=== PATIENT | male | born 1985 | race Caucasian/White ===

== ENCOUNTER 2017-10-02 22:00 | Emergency (ER) | END 2017-10-03 00:28 | disposition home or self-care (01) ==

== ENCOUNTER 2019-04-03 19:21 | Inpatient (IN) | payer OTHER ==
[~2019-04-03] VITALS: Ht 182.9 cm; Wt 80.9 kg
[~2019-04-03 19:21] MED LIST: DEXT37.54 BUCCAL; INSU100V18; Insulin Glargine SC; LIPA1CAP4 PO; NOV70303I; NOVO3I SC
[2019-04-03] MEDS ORDERED: SODIUM CHLORIDE 0.9% 1L BAG IV* STA (19:31)
[2019-04-03] MEDS ORDERED: CEFEPIME 2GM/50 ML (PMX) 50 ML IVPB STA (19:31)
[2019-04-03] MEDS ORDERED: LORAZEPAM 2 MG INJ IV ONE (20:00)
[2019-04-03] MEDS ORDERED: VANCOMYCIN 1 GM (PMX) 250 ML IVPB ONE (20:00)
[2019-04-03] MEDS ORDERED: INSULIN REGULAR 10 ML INJ IV STA (20:35)
[2019-04-03] MEDS ORDERED: INSULIN REGULAR, HUMAN 100 UNIT/1 ML 3ML VIAL IV STA (20:54)
[2019-04-03] MEDS ORDERED: INSULIN REGULAR, HUMAN 100 UNIT in SOD CHLORIDE 0.9% 100 ML IV SCH ×2 (21:00)
--- NOTE | 2019-04-03 22:20 | ERD ---
ER Documentation Chief Complaint Chief Complaint BIBRA from B&C,c/o leg cramps & pain,high blood sugar over 300 per EMS HPI This is a 33-year-old male brought in from a [facility] care facility. The patient has a history of insulin-dependent diabetes mellitus. According to the [facility] they stated that he has history of underlying psychiatric disorder with paranoia. The patient however denies a history of schizophrenia. The patient started complaining of severe bilateral leg cramps an hour prior to arrival. He became diaphoretic and said he was experiencing shaking and chills. The [facility] took his Accu-Chek and it was elevated greater than 300. They administered insulin. The patient said he was still complaining of severe cramping of his lower extremities with no shortness of breath and therefore they brought him to the emergency department to be further evaluated. They state he has had a productive cough for several days. No antipyretics were given prior to arrival. He denies any polyuria polydipsia. He stated he drank a gallon of water when he started to develop the leg cramps but this did not improve his symptoms. He denies any illicit drug use. He denies alcohol use. He denies a headache or neck pain. He denies any recent hospitalizations. ROS All systems reviewed and are negative except as per history of present illness. Medications Home Meds Reported Medications Insulin Lispro (Humalog) 100 U/Ml Vial 11/15/09 Insulin Human Isophan/Regular (Novolin 70/30) 100 Unit/Ml Susp 11/11/09 Allergies Allergies: Coded Allergies: No Known Allergies (Verified Allergy, Mild, 10/02/17) PMhx/Soc History of Surgery: No Hx Neurological Disorder: No Hx Respiratory Disorders: Yes (ASTHMA) Hx Cardiac Disorders: No Hx Psychiatric Problems: No Hx Miscellaneous Medical Probl: Yes (PARANOID SCHIZO) Hx Alcohol Use: No Hx Substance Use: No Hx Tobacco Use: No Smoking Status: Never smoker Physical Exam Vitals Vital Signs Date Temp Pulse Resp B/P (MAP) Pulse Ox O2 O2 Flow FiO2 Time Delivery Rate 04/03/19 71 14 110/64 98 Room Air 22:00 (79) 04/03/19 73 13 113/60 98 Room Air 21:45 (77) 04/03/19 73 13 112/63 98 Room Air 21:30 (79) 04/03/19 72 14 110/65 98 Room Air 21:15 (80) 04/03/19 83 16 114/78 98 Room Air 21:00 (90) 04/03/19 78 14 121/89 98 Room Air 20:45 (100) 04/03/19 80 15 120/65 97 Room Air 20:30 (83) 04/03/19 99.2 95 12 124/86 97 Room Air 20:00 (99) 04/03/19 99.0 123 20 121/89 100 19:32 (100) Physical Exam Constitutional:Well-developed. Well-nourished. HEENT:Normocephalic. Atraumatic.Pupils were equal round reactive to light. Very dry mucous membranes.No tonsillar exudates. Neck: No nuchal rigidity. No lymphadenopathy. No posterior cervical spine tenderness or step-offs. Respiratory: Not using accessory muscles of respiration.Lungs were clear to auscultation bilaterally. No rhonchi. No rales. No wheezing. Cardiovascular: Tachycardic with regular rhythm.No murmurs. No rubs were appreciated.S1, S2 normal. Distal pulses are palpable 2+ bilaterally. GI: Abdomen was soft. Nontender. Non Distended. No pulsatile abdominal masses or bruits. No rebound. No guarding. Bowel sounds were present and normal. Muscle skeletal: Full range of motion of both the upper and lower extremities bilaterally.Normal muscle tone.No assymetrical calf swelling but bilateral calf tenderness. Negative Homans sign. Skin: No petechia, no purpura. No lesions on the palms or the soles of the feet. No maculopapular rash. NEURO: Patient was alert, awake, orientated x3.No facial droop. Gait not observed as patient states he was in too much pain to ambulate. Result Diagram: 04/03/19193604/03/191936 Results 24 hrs Laboratory Tests Test 04/03/19 19:31 04/03/19 19:37 04/03/19 19:38 04/03/19 19:51 Bedside Glucose > 595 mg/dL White Blood 6.7 10^3/ul Count Red Blood Count 4.33 10^6/ul Hemoglobin 13.1 g/dl Hematocrit 36.2 % Mean 83.6 fl Corpuscular Volume Mean 30.3 pg Corpuscular Hemoglobin Mean 36.2 g/dl Corpuscular Hemoglobin Conc ent Red Cell 11.9 % Distribution Width Platelet Count 175 10^3/UL Mean Platelet 12.4 fl Volume Immature 0.300 % Granulocytes % Neutrophils % 58.9 % Lymphocytes % 27.0 % Monocytes % 12.3 % Eosinophils % 0.9 % Basophils % 0.6 % Nucleated Red 0.0 /100WBC Blood Cells % Immature 0.020 10^3/ul Granulocytes # Neutrophils # 4.0 10^3/ul Lymphocytes # 1.8 10^3/ul Monocytes # 0.8 10^3/ul Eosinophils # 0.1 10^3/ul Basophils # 0.0 10^3/ul Nucleated Red 0.0 10^3/ul Blood Cells # Prothrombin 13.6 Sec Time Prothrombin 1.1 Time Ratio INR 1.03 International Normalized Rati o Activated 27.5 Sec Partial Thrombo plast Time Sodium Level 130 mmol/L Potassium Level 4.2 mmol/L Chloride Level 85 mmol/L Carbon Dioxide 21 mmol/L Level Anion Gap 24 Blood Urea 22 mg/dl Nitrogen Creatinine 1.50 mg/dl Est Glomerular 54 mL/min Filtrat Rate mL/min Glucose Level 699 mg/dl Hemoglobin A1c 11.4 % Calcium Level 10.8 mg/dl Phosphorus 2.8 mg/dl Level Magnesium Level 1.9 mg/dl Total Bilirubin 3.7 mg/dl Direct 0.00 mg/dl Bilirubin Indirect 3.7 mg/dl Bilirubin Aspartate Amino 116 IU/L Transf (AST/SGO T) Alanine 72 IU/L Aminotransferas e (ALT/SGPT) Alkaline 174 IU/L Phosphatase Troponin I < 0.012 ng/ml Total Protein 8.8 g/dl Albumin 5.1 g/dl Globulin 3.70 g/dl Albumin/Globuli 1.37 n Ratio POC Venous 7.1 mmol/L Lactate Blood Gas Blood venous Specimen Source Arterial Blood 04/03/2019 8:25: Date Drawn 58 PM Arterial Blood VENOUS LINE Gas Puncture Site Robert Test N/A Venous Blood pH 7.419 Venous Blood 34.9 mmHG pCO2 (Temp Corrected ) Venous Blood 43.9 mmHG pO2 (Temp Corrected ) Venous Blood 22.1 mmol/L HCO3 Venous Blood 79.7 mmHG Oxygen Saturation Venous Blood -1.8 mmol/L Base Excess Venous Blood 13.0 g/dl Total Hemoglobin Venous Blood 78.8 % Oxyhemoglobin Venous Blood 0.3 % Methemoglobin Carboxyhemoglob 0.8 % in Blood Gas 37.0 C Temperature Blood Gas ROOM AIR Modality FiO2 21.0 % Blood Gas MG Notified Whom Blood Gas 04/03/2019 8:38: Notified Time 27 PM Test 04/03/19 20:59 04/03/19 21:05 04/03/19 21:36 04/03/19 21:46 Urine Color YELLOW Urine Clarity CLEAR Urine pH 5.0 Urine Specific 1.024 [place] Urine Ketones TRACE mg/dL Urine Nitrite NEGATIVE mg/dL Urine Bilirubin NEGATIVE mg/dL Urine NEGATIVE mg/dL Urobilinogen Urine Leukocyte NEGATIVE Jaylene/ul Esterase Urine NEGATIVE mg/dL Hemoglobin Urine Glucose 3+ mg/dL Urine Total NEGATIVE mg/dl Protein Bedside Glucose 448 mg/dL 394 mg/dL Lactic Acid 2.9 mmol/L Level Test 04/03/19 22:58 04/03/19 22:59 Bedside Glucose 151 mg/dL Lactic Acid 4.4 mmol/L Level Creatine Kinase 227 IU/L Current Medications Medications Dose Sig/Claire Start Time Status Last (Trade) Ordered Route PRN Stop Time Admin Dose Reason Admin Sodium 2,450 ml BOLUS OVER 2 04/03/19 DC 04/03/19 Chloride HOURS STAT 19:31 19:42 (NS) IV* 04/03/19 19:33 Cefepime HCl 50 ml @ ONCE STAT 04/03/19 DC 04/03/19 100 mls/hr IVPB 19:31 19:43 04/03/19 20:00 Vancomycin 250 ml @ ONCE ONCE 04/03/19 DC 04/03/19 HCl 125 mls/hr IVPB 20:00 20:25 04/03/19 21:59 Lorazepam 1 mg ONCE ONCE 04/03/19 DC 04/03/19 (Ativan) IV 20:00 19:43 04/03/19 20:01 Insulin 101 ml @ ER DKA 04/03/19 04/03/19 Human 8.26 mls/hr PROTOCOL IV 21:00 21:10 Regular 100 unit/ Sodium Chloride Insulin 10 unit ONCE STAT 04/03/19 Cancel Human IV 20:35 Regular 04/03/19 20:36 (Novolin-R) Insulin 10 unit ONCE STAT 04/03/19 DC 04/03/19 Human IV 20:54 21:09 Regular 04/03/19 20:55 (Humulin R) Sodium 1,000 ml @ Q5H IV 04/03/19 04/03/19 Chloride 200 mls/hr 22:32 22:51 Ondansetron 4 mg Q6H PRN 04/03/19 HCl (Zofran IV NAUSEA 23:00 Inj) AND/OR VOMITING Albuterol 2.5 mg Q2H RESP 04/03/19 (Proventil THERAPY PRN 23:00 0.083% (Neb)) NEB SHORTNESS OF BREATH Ipratropium 0.5 mg Q2H RESP 04/03/19 [place] THERAPY PRN 23:00 (Atrovent NEB 0.02% SHORTNESS OF (Neb)) BREATH 650 mg Q6H PRN 04/03/19 Acetaminophen PO PAIN 23:00 (Tylenol LEVEL 1-3 OR Liquid) FEVER 1 tab Q6H PRN 04/03/19 Acetaminophen PO PAIN 23:00 / LEVEL 4-6 Hydrocodone Bitart ([place] (5/325)) Morphine 2 mg Q4H PRN 04/03/19 Sulfate IV PAIN 23:00 (morphine) LEVEL 7-10 Docusate 100 mg Q12H PRN 04/03/19 Sodium PO 23:00 (Colace) CONSTIPATION Bisacodyl 5 mg DAILY PRN 04/03/19 (Dulcolax) PO 23:00 CONSTIPATION Famotidine 20 mg Q12 IV 04/03/19 04/03/19 (Pepcid Iv) 23:00 22:55 Heparin 5,000 unit Q8 SC 04/04/19 Sodium 06:00 (Porcine) (Heparin (5000 Units/1ml)) Discontinue PROTOCOL 04/03/19 DC Miscellaneous all previ... ONCE XX 23:00 04/03/19 23:01 Information (* Miscellaneous Pharmacy Order) Diagnostic 1 ea Q1H XX 04/03/19 Test (Pha) 23:00 (Accu-Chek) Insulin 100 ml @ 0 PER 04/03/19 Human mls/hr PROTOCOL IV 23:00 Regular 100 unit/ Sodium Chloride Treatment Per 04/03/19 Miscellaneous of protocol XX 23:00 Hypoglycemia: Information 1.BG 51... (* Miscellaneous Pharmacy Order) Dextrose 25 ml Q15M PRN 04/03/19 (D50w IV 23:00 Syringe) .DECREASED GLUCOSE Dextrose 50 ml Q15M PRN 04/03/19 (D50w IV 23:00 Syringe) .DECREASED GLUCOSE Lorazepam 1 mg Q6H PRN 04/03/19 (Ativan) IV 23:00 AGITATION/ANX IETY Procedures/MDM This is a 31-year-old male who presented to the emergency department with bilateral leg cramps. The patient did meet Sirs criteria. Patient was immediately placed in a cardiac surgeon continuous pulse oximetry and IV access was established by nursing staff. The patient's lactic acid was 7.1 and was treated for sepsis. 12 Lead EKG tracing ordered and reviewed by myself showed: Sinus tachycardia 122 bpm and no arrhythmia. MS interval normal. QRS duration normal. No ST segment elevation No ST segment depression. No changes consistent with acute ischemia. Patient's infectious symptoms have not stabilized and the patient is at risk of rapid decompensation. The patient will be admitted for careful hydration, antibiotic therapy, and infectious source control. Severe Sepsis Assessment: Infectious Source: Unknown source End organ damage indicated by: Lactate > 2.0 mmol/L Severe Sepsis Managment: Blood Cultures X 2 before broad spectrum antibiotics initiated within 3 hours of recognition. 30 ml/kg NS bolus Completed Initial Lactate: 7.1 Repeat Lactate pending Septic Shock Assessment (1 hour post 30 ml/kg fluid bolus): Hypotension (SBP < 90 or 40 mmHg drop, MAP < 65): No Lactic acid > 4.0 Yes Perfusion Reassessment for Septic Shock taken at 20:00: Temp 99.2, Pulse 95, RR 12, BP 124/86 Heart Exam: Regular rhythm and rate Lung Exam: Normal Capillary Refill: <2 seconds Peripheral Pulses: Radially present Skin: Normal I considered further perfusion assessment with CVP measurement, SCVO2, bedside ultrasound volume assessment, passive leg raise, trial of further fluid bolus. And preceded with IV fluids Chest radiograph showed no evidence of pneumonia. Blood cultures and urine cultures were obtained. There is no evidence of urinary tract infection. The exact source of sepsis was unclear. I did feel the elevated lactic acid more likely as result of sepsis but cannot rule out the possibility of the patient was experiencing elevated lactic acid being from severe hyperglycemia and agitation. Verbal de-escalation was unable to calm the patient down. He stated he was in a severe amount of pain. The pain was localized to his bilateral lower extremities. He did receive IV Ativan and had significant improvement of his symptoms. I obtained a venous duplex ultrasound of his lower extremities there is no evidence of DVT. There was no overlying skin changes to suggest cellulitis. His clinical presentation did not suggest necrotizing fasciitis. The patient had severe hyperglycemia with a blood glucose of 699. The patient did have an anion gap but there was no evidence of ketosis. Venous blood gas showed no evidence of acidosis. Bicarb was normal. Therefore did not feel this result of diabetic ketoacidosis. The patient was not in a coma. However he will be placed on an insulin drip to close the anion gap. He will be admitted to the intensive care unit in serious condition with an anticipated stay of greater than 2 midnights to the hospitalist. Critical Care: Time: 85 minutes Treatments/Evaluations: Close monitoring and treatment of unstable vital signs, cardiorespiratory, and neurologic status, while maintaining tight balance of fluid, respiratory, and cardiac interventions. Time does not include performing any of the above billable procedures. Departure Diagnosis: Primary Impression: Bilateral leg pain Additional Impressions: Hyperglycemia Severe sepsis Condition: Serious ANETA HAYWOOD MD Apr 03, 2019 22:19
--- NOTE | 2019-04-03 22:42 | HP ---
Date/Time of Note Date/Time of Note DATE: 04/03/19 TIME: 22:41 Assessment/Plan VTE Prophylaxis SCD applied (from Nsg): Yes Pharmacological prophylaxis: NA/contraindicated Pharm contraindication: low risk/ambulating Lines/Catheters IV Catheter Type (from Nrsg): Saline Lock Assessment/Plan Hospital Course This is a 33-year-old male being admitted to the ICU floor for: 1 diabetic ketoacidosis: Likely secondary noncompliance versus other. Patient presented with blood sugars in the 600 and ketones in the urine. Will initiate the patient on insulin sliding scale. Normal saline IV fluid hydration and will switch to D5 half-normal saline once her blood sugars drop below 200. Serial CMP's. ABG. Will consult endocrinology . 2. bilateral lower extremity pain: Possibly secondary to dehydration from underlying DKA. Will check CK levels. Lower extremity ultrasound is negative for any DVT. 3. pseudohyponatremia: Secondary to underlying DKA and elevated blood sugars. Monitor sodium levels 4. Acute kidney injury: Likely prerenal etiology secondary to underlying dehydration, DKA. We will hydrate the patient also appear monitor renal function. Avoid nephrotoxic agents. 5. Obstructive LFTs: Hyperbilirubinemia with mild transaminitis. No right upper quadrant tenderness to palpation. Nonetheless we will obtain a liver ultrasound to further evaluate. GI consultation dr montgomery 6 lactic acidosis: Possibly multifactorial secondary to underlying DKA, possible infection. Will trend lactic acid levels. Will treat the DKA. Broad-spectrum antibiotics. No source of infection at the current time is been found, nonetheless will continue antibiotics. 7. DVT GI prophylaxis: SCDs, Pepcid Further treatment strategy will be implemented as per the clinical course. Greater than 35 minutes critical care time was spent on the care management this patient. Result Diagram: 04/03/19193604/03/191936 Results 24hrs Laboratory Tests Test 04/03/19 19:31 04/03/19 19:37 04/03/19 19:38 04/03/19 19:51 Bedside Glucose > 595 *H White Blood Count 6.7 Red Blood Count 4.33 L Hemoglobin 13.1 L Hematocrit 36.2 L Mean Corpuscular 83.6 Volume Mean Corpuscular 30.3 Hemoglobin Mean Corpuscular 36.2 Hemoglobin Concen t Red Cell 11.9 Distribution Width Platelet Count 175 Mean Platelet 12.4 H Volume Immature 0.300 Granulocytes % Neutrophils % 58.9 Lymphocytes % 27.0 Monocytes % 12.3 H Eosinophils % 0.9 Basophils % 0.6 Nucleated Red 0.0 Blood Cells % Immature 0.020 Granulocytes # Neutrophils # 4.0 Lymphocytes # 1.8 Monocytes # 0.8 Eosinophils # 0.1 Basophils # 0.0 Nucleated Red 0.0 Blood Cells # Prothrombin Time 13.6 Prothrombin Time 1.1 Ratio INR International 1.03 Normalized Ratio Activated 27.5 Partial Thrombopl ast Time Sodium Level 130 L Potassium Level 4.2 Chloride Level 85 L Carbon Dioxide 21 Level Anion Gap 24 H Blood Urea 22 H Nitrogen Creatinine 1.50 H Est Glomerular 54 L Filtrat Rate mL/min Glucose Level 699 *H Hemoglobin A1c 11.4 H Calcium Level 10.8 H Phosphorus Level 2.8 Magnesium Level 1.9 Total Bilirubin 3.7 H Direct Bilirubin 0.00 Indirect 3.7 H Bilirubin Aspartate Amino 116 H Transf (AST/SGOT) Alanine 72 H Aminotransferase (ALT/SGPT) Alkaline 174 H Phosphatase Troponin I < 0.012 Total Protein 8.8 H Albumin 5.1 H Globulin 3.70 H Albumin/Globulin 1.37 Ratio POC Venous 7.1 *H Lactate Blood Gas Blood venous Specimen Source Arterial Blood 04/03/2019 8:25:5 Date Drawn 8 PM Arterial Blood VENOUS LINE Gas Puncture Site Robert Test N/A Venous Blood pH 7.419 Venous Blood pCO2 34.9 L (Temp Corrected) Venous Blood pO2 43.9 H (Temp Corrected) Venous Blood HCO3 22.1 Venous Blood 79.7 H Oxygen Saturation Venous Blood Base -1.8 Excess Venous Blood 13.0 Total Hemoglobin Venous Blood 78.8 Oxyhemoglobin Venous Blood 0.3 Methemoglobin Carboxyhemoglobin 0.8 Blood Gas 37.0 Temperature Blood Gas ROOM AIR Modality FiO2 21.0 Blood Gas MG Notified Whom Blood Gas 04/03/2019 8:38:2 Notified Time 7 PM Test 04/03/19 20:59 04/03/19 21:05 04/03/19 21:36 04/03/19 21:46 Urine Color YELLOW Urine Clarity CLEAR Urine pH 5.0 Urine Specific 1.024 [place] Urine Ketones TRACE A Urine Nitrite NEGATIVE Urine Bilirubin NEGATIVE Urine NEGATIVE Urobilinogen Urine Leukocyte NEGATIVE Esterase Urine Hemoglobin NEGATIVE Urine Glucose 3+ H Urine Total NEGATIVE Protein Bedside Glucose 448 *H 394 H Lactic Acid Level 2.9 *H HPI/ROS Admit Date/Time Admit Date/Time Hx of Present Illness Chief complaint: Bilateral leg pain This is a 33-year-old male brought in from a [facility]. The patient has a history of insulin-dependent diabetes mellitus. According to the [facility] they stated that he has history of underlying psychiatric disorder with paranoia. Patient himself denies any psychiatric history. Patient also denies any drug use, though he was positive for methamphetamine on his urine drug screen. The patient started complaining of severe bilateral leg cramps an hour prior to arrival. He became diaphoretic and said he was experiencing shaking and chills. The [facility] facility took his Accu-Chek and it was elevated greater than 300. They administered insulin. The patient said he was still complaining of severe cramping of his lower extremities with no shortness of breath and therefore they brought him to the emergency department to be further evaluated. They state he has had a productive cough fo r several days. No antipyretics were given prior to arrival. He denies any polyuria polydipsia. He stated he drank a gallon of water when he started to develop the leg cramps but this did not improve his symptoms. He denies any fevers or chills or nausea vomiting diarrhea. Patient reports that he has a caregiver and a nurse that comes and administer his medications for him. Allergies: NKDA Medications: NPH 70/30 Insulin lispro ROS Const: As per HPI Eyes : No pain discharge or redness or change in visual acuity ENT: No pain, sore throat, congestion, congestion, dysphagia or discharge Respiratory: No shortness of breath, cough, sputum, wheezing, or pleuritic pain Cardiovascular: No chest pain, palpitation, PND, or edema GI : no change in appetite, abdominal pain, nausea, vomiting, diarrhea, constipation, or change in the color his stool Genitourinary: No dysuria, hematuria, flank pain , discharge or CVA tenderness Musculoskeletal: As per HPI Skin: No rash, bruising or hives Neuro: No headache, dizziness, syncope, seizure, focal weakness Endocrine: No polyuria, polydipsia, temperature intolerance Psych: No hallucination, depression, anxiety or suicidal ideation Additional Comments PROCEDURE: Ultrasound examination of bilateral lower extremities veins with Doppler. CLINICAL INDICATION: Leg pain and swelling. TECHNIQUE: Multiple sonographic images of bilateral lower extremity venous systems were performed with payne scale and color Doppler. COMPARISON: None. FINDINGS: Bilateral common femoral, superficial femoral and popliteal veins demonstrate normal color flow, waveforms, compression and response to augmentation. There is no evidence of deep venous thrombosis. IMPRESSION: No evidence of deep venous thrombosis within bilateral lower extremities. .Jeremy Joseph MD, MD Date Time Electronically viewed and signed by .Jeremy Joseph MD, MD on 04/03/2019 20:31 .T/ CC: ANETA HAYWOOD MD [phone] PROCEDURE: XR Chest. CLINICAL INDICATION: chest pain TECHNIQUE: Single frontal view of the chest was obtained COMPARISON: CR CHEST 11/15/2009 FINDINGS: The heart and mediastinum are within normal limits. The lungs are clear. There is no pleural effusion or pneumothorax. RPTAT: AA IMPRESSION: No acute disease. .Tejas Ramírez MD, Date Time Electronically viewed and signed by .Tejas Ramírez MD, MD on 04/03/2019 19:59 .S/ CC: ANETA HAYWOOD MD [phone] PMH/Family/Social Past Medical History Diabetes mellitus, unspecified mood disorder, asthma Medications Current Medications Insulin Human Regular 100 unit/ Sodium Chloride 101 ml @ 8.26 mls/hr ER DKA PROTOCOL IV Last administered on 04/03/19at 21:10; Admin Dose 8.26 MLS/HR; Start 04/03/19 at 21:00 Sodium Chloride 1,000 ml @ 200 mls/hr Q5H IV ; Start 04/03/19 at 22:32 Ondansetron HCl (Zofran Inj) 4 mg Q6H PRN IV NAUSEA AND/OR VOMITING; Start 04/03/19 at 23:00 Albuterol (Proventil 0.083% (Neb)) 2.5 mg Q2H RESP THERAPY PRN NEB SHORTNESS OF BREATH; Start 04/03/19 at 23:00 Ipratropium Esparto (Atrovent 0.02% (Neb)) 0.5 mg Q2H RESP THERAPY PRN NEB SHORTNESS OF BREATH; Start 04/03/19 at 23:00 Acetaminophen (Tylenol Liquid) 650 mg Q6H PRN PO PAIN LEVEL 1-3 OR FEVER; Start 04/03/19 at 23:00 Acetaminophen/ Hydrocodone Bitart ([place] (5/325)) 1 tab Q6H PRN PO PAIN LEVEL 4-6; Start 04/03/19 at 23:00 Morphine Sulfate (morphine) 2 mg Q4H PRN IV PAIN LEVEL 7-10; Start 04/03/19 at 23:00 Docusate Sodium (Colace) 100 mg Q12H PRN PO CONSTIPATION; Start 04/03/19 at 23:00 Bisacodyl (Dulcolax) 5 mg DAILY PRN PO CONSTIPATION; Start 04/03/19 at 23:00 Famotidine (Pepcid Iv) 20 mg Q12 IV ; Start 04/03/19 at 23:00 Heparin Sodium (Porcine) (Heparin (5000 Units/1ml)) 5,000 unit Q8 SC ; Start 04/04/19 at 06:00 Miscellaneous Information (* Miscellaneous Pharmacy Order) Discontinue all previ... PROTOCOL ONCE XX ; Start 04/03/19 at 23:00; Stop 04/03/19 at 23:01; Status UNV Diagnostic Test (Pha) (Accu-Chek) 1 ea Q1H XX ; Start 04/03/19 at 23:00 Insulin Human Regular 100 unit/ Sodium Chloride 100 ml @ 0 mls/hr PER PROTOCOL IV ; Start 04/03/19 at 23:00; Status UNV Miscellaneous Information (* Miscellaneous Pharmacy Order) Treatment of Hyp oglycemia: 1.BG 51... Per protocol XX ; Start 04/03/19 at 23:00; Status UNV Dextrose (D50w Syringe) 25 ml Q15M PRN IV .DECREASED GLUCOSE; Start 04/03/19 at 23:00 Dextrose (D50w Syringe) 50 ml Q15M PRN IV .DECREASED GLUCOSE; Start 04/03/19 at 23:00 Lorazepam (Ativan) 1 mg Q6H PRN IV AGITATION/ANXIETY; Start 04/03/19 at 23:00 Coded Allergies: No Known Allergies (Verified Allergy, Mild, 10/02/17) Past Surgical History Cholecystectomy, right hand surgery Social History Patient denies drug use but his urine drug screen was positive for amphetamines Alcohol Use: none Smoking Status: Never smoker Drug Use: none Exam/Review of Systems Vital Signs Vitals Vital Signs Date Temp Pulse Resp B/P (MAP) Pulse Ox O2 O2 Flow FiO2 Time Delivery Rate 04/03/19 71 14 110/64 98 Room Air 22:00 (79) 04/03/19 99.2 20:00 Exam Exam General: Patient is a pleasant male currently lying in bed in no acute distress HEENT: Atraumatic, normocephalic. The pupils are equal, round and reactive. Extraocular motor are intact Neck: Supple with full range of motion. No rigidity or meningismus Chest: Nontender Lungs: Clear to auscultation bilaterally no crackles rales or wheezing Heart: Normal S1-S2, Regular rhythm and rate. No murmur, S3, or S4 Abdomen: Soft , nontender, nondistended , bowel sounds are present. No guarding no rebound tenderness , No masses or organomegaly. No costovertebral temporal angle mass Extremities: Normal to inspection, no edema no cyanosis, palpable pulses Neurologic: Normal mental status, speech normal, cranial nerves II through XII are intact, motor and sensory are intact, Psych: Patient at the current time appears calm he does not appear to be agitated or hallucinating. Additional Comments PROCEDURE: Ultrasound examination of bilateral lower extremities veins with Doppler. CLINICAL INDICATION: Leg pain and swelling. TECHNIQUE: Multiple sonographic images of bilateral lower extremity venous systems were performed with payne scale and color Doppler. COMPARISON: None. FINDINGS: Bilateral common femoral, superficial femoral and popliteal veins demonstrate normal color flow, waveforms, compression and response to augmentation. There is no evidence of deep venous thrombosis. IMPRESSION: No evidence of deep venous thrombosis within bilateral lower extremities. .Jeremy Joseph MD, MD Date Time Electronically viewed and signed by .Jeremy Joseph MD, MD on 04/03/2019 20:31 .T/ CC: ANETA HAYWOOD MD [phone] PROCEDURE: XR Chest. CLINICAL INDICATION: chest pain TECHNIQUE: Single frontal view of the chest was obtained COMPARISON: CR CHEST 11/15/2009 FINDINGS: The heart and mediastinum are within normal limits. The lungs are clear. There is no pleural effusion or pneumothorax. RPTAT: AA IMPRESSION: No acute disease. .Tejas Ramírez MD, MD Date Time Electronically viewed and signed by .Tejas Ramírez MD, MD on 04/03/2019 19:59 .S/ CC: ANETA HAYWOOD MD [phone] PORSHA SILVER Apr 03, 2019 22:42
[2019-04-03] MEDS: SOD CHLORIDE 0.9% 1,000 ML IV SCH (22:51)
[2019-04-03] MEDS: ACCU-CHEK XX SCH (22:53)
[2019-04-03] MEDS: FAMOTIDINE 20 MG INJ IV SCH (22:55)
[2019-04-03] MEDS ORDERED: BISACODYL (EC) 5 MG TAB PO PRN (23:00)
[2019-04-03] MEDS ORDERED: DEXTROSE 50% 50 ML SYRINGE IV PRN (23:00)
[2019-04-03] MEDS ORDERED: LORAZEPAM 2 MG INJ IV PRN (23:00)
[2019-04-03] MEDS ORDERED: IPRATROPIUM (NEB) 0.5 MG/2.5 ML AMP NEB PRN (23:00)
[2019-04-03] MEDS ORDERED: ACETAMINOPHEN 650MG/20.3ML CUP PO PRN (23:00)
[2019-04-03] MEDS ORDERED: morphine 2 MG INJ IV PRN (23:00)
[2019-04-03] MEDS ORDERED: ONDANSETRON 4 MG INJ IV PRN (23:00)
[2019-04-03] MEDS ORDERED: DOCUSATE SODIUM 100 MG CAP PO PRN (23:00)
[2019-04-03] MEDS ORDERED: ALBUTEROL 0.083% (NEB) 2.5 MG/3 ML AMP NEB PRN (23:00)
[2019-04-03] MEDS ORDERED: INSULIN HUMAN REGULAR 100 UNIT in SOD CHLORIDE 0.9% 99 ML IV SCH (23:00)
[2019-04-03] MEDS ORDERED: HYDROCODONE/APAP (5/325) TAB PO PRN (23:00)
[2019-04-04] MEDS: DEXTROSE 50% 50 ML SYRINGE IV PRN ×2 (00:27→03:03)
[2019-04-04] MEDS ORDERED: VANCOMYCIN IV PER PHARMACY XX SCH (00:30)
[2019-04-04] MEDS: PIPER-TAZO 3.375 GM IV (PMX) 100 ML IVPB SCH ×5 (00:57→23:02)
[2019-04-04] MEDS ORDERED: DEXTROSE 5%-0.45% NACL 1,000 ML IV SCH ×2 (01:00→04:30)
[2019-04-04] MEDS: ACCU-CHEK XX SCH ×7 (01:00→06:10)
[2019-04-04] MEDS: SOD CHLORIDE 0.9% 1,000 ML IV SCH ×2 (03:33→08:32)
[2019-04-04] MEDS ORDERED: INSULIN GLARGINE [LANTus] (100 UNITS/ML) SYG SC ONE ×2 (04:00→04:30)
[2019-04-04] MEDS ORDERED: GLUCAGON 1 MG INJ IM PRN (04:30)
[2019-04-04] MEDS ORDERED: GLUCOSE GEL 15 GRAM TUBE PO PRN ×2 (04:30)
[2019-04-04] MEDS ORDERED: GLUCOSE GEL 15 GRAM TUBE BUCCAL PRN (04:30)
[2019-04-04] MEDS ORDERED: DEXTROSE 50% 50 ML SYRINGE IV PRN ×2 (04:30)
[2019-04-04] MEDS: INSULIN ASPART [NOVOLOG] 3 ML PEN SC SCH ×7 (04:35→21:07)
[2019-04-04] MEDS ORDERED: LORAZEPAM 2 MG INJ IV PRN (05:00)
[2019-04-04 05:30] VITALS: Ht 182.9 cm; Wt 80.9 kg
[2019-04-04] MEDS: HEPARIN 5,000 UNIT/1 ML VIAL SC SCH ×3 (06:23→21:08)
[2019-04-04 07:28] VITALS: BP 103/52; PULSE 59; RESP 18
[2019-04-04] MEDS ORDERED: INSULIN ASPART [NOVOLOG] 3 ML PEN SC SCH (08:00)
[2019-04-04] MEDS ORDERED: VANCOMYCIN 1 GM 250 ML IVPB SCH (08:00)
--- NOTE | 2019-04-04 08:17 | CONS ---
Assessment/Plan Assessment/Plan Hospital Course (Demo Recall) Summary Assessment and Plan: Assessment: DKA Indirect hyperbilirubinemia with a mild transaminitis Thrombocytopenia SARA- resolved Toxicology screen positive for amphetamines Plan: Able to obtain MRCP secondary to metal in right hand Hepatitis serology ASMA, DEANNA, AMA Trend LFTs She is seen in collaboration with Dr. Kevin CC: ANGELA KEVIN MD ; Consultation Date/Type/Reason Admit Date/Time Date of Consultation: Apr 04, 2019 Type of Consult GI Reason for Consultation Direct hyperbilirubinemia with mild transaminitis Date/Time of Note DATE: 04/04/19 TIME: 08:05 Hx of Present Illness This is a 33-year-old male who was admitted to the hospital with diabetic ketoacidosis, SARA and noted indirect hyperbilirubinemia with mild transaminitis. Her labs were obtained noting normocytic anemia and a mild thrombocytopenia. Liver ultrasound was obtained showing a mildly dilated common bile duct measuring 7.5 mm in diameter. No intraductal stone or obstructing lesion is identified consider further evaluation with MRCP, liver is unremarkable. GIs been consulted for further evaluation. Evaluation patient is sleeping very dif ficult to wake up his girlfriend is at bedside he states this is his norm. Denies nausea/vomiting or abdominal pain he denies previous liver disease he denies drug use despite being positive for amphetamines on toxicology screen. He states he drinks 2 drinks during the week but does not drink in excess. Previously had surgery to his right hand with metal therefore we are unable to obtain MRCP. Discussed plan to obtain further evaluation including ceruloplasmin as well as DEANNA, ASMA, AMA, hepatitis serology. Review of Systems: A 12 system, review was conducted and is negative except as noted in the HPI or here. Past Medical History Home Meds Reported Medications Insulin Lispro (Humalog) 100 U/Ml Vial 11/15/09 Insulin Human Isophan/Regular (Novolin 70/30) 100 Unit/Ml Susp 11/11/09 Medications Current Medications Sodium Chloride 1,000 ml @ 200 mls/hr Q5H IV Last administered on 04/04/19at 0 3:33; Admin Dose 200 MLS/HR; Start 04/03/19 at 22:32 Ondansetron HCl (Zofran Inj) 4 mg Q6H PRN IV NAUSEA AND/OR VOMITING; Start 04/03/19 at 23:00 Albuterol (Proventil 0.083% (Neb)) 2.5 mg Q2H RESP THERAPY PRN NEB SHORTNESS OF BREATH; Start 04/03/19 at 23:00 Ipratropium [place] (Atrovent 0.02% (Neb)) 0.5 mg Q2H RESP THERAPY PRN NEB SHORTNESS OF BREATH; Start 04/03/19 at 23:00 Acetaminophen (Tylenol Liquid) 650 mg Q6H PRN PO PAIN LEVEL 1-3 OR FEVER; Start 04/03/19 at 23:00 Acetaminophen/ Hydrocodone Bitart ([place] (5/325)) 1 tab Q6H PRN PO PAIN LEVEL 4-6; Start 04/03/19 at 23:00 Morphine Sulfate (morphine) 2 mg Q4H PRN IV PAIN LEVEL 7-10; Start 04/03/19 at 23:00 Docusate Sodium (Colace) 100 mg Q12H PRN PO CONSTIPATION; Start 04/03/19 at 23:00 Bisacodyl (Dulcolax) 5 mg DAILY PRN PO CONSTIPATION; Start 04/03/19 at 23:00 Famotidine (Pepcid Iv) 20 mg Q12 IV Last administered on 04/03/19at 22:55; Admin Dose 20 MG; Start 04/03/19 at 23:00 Heparin Sodium (Porcine) (Heparin (5000 Units/1ml)) 5,000 unit Q8 SC Last administered on 04/04/19at 06:23; Admin Dose 5,000 UNIT; Start 04/04/19 at 06:00 Insulin Human Regular 100 unit/ Sodium Chloride 100 ml @ 0 mls/hr PER PROTOCOL IV ; Start 04/03/19 at 23:00 Vancomycin HCl (Vanco Iv Per Pharmacy) VANCOMYCIN PER PHARMACY PER PROTOCOL XX ; Start 04/04/19 at 00:30 Piperacillin Sod/ Tazobactam Sod 100 ml @ 200 mls/hr Q6 IVPB Last administered on 04/04/19at 06:12; Admin Dose 200 MLS/HR; Start 04/04/19 at 00:30 Vancomycin HCl 250 ml @ 125 mls/hr Q12H IVPB ; Start 04/04/19 at 08:00 Miscellaneous Information (*Rx Drug Level Order Reminder*) VANCOMYCIN TROUGH LEVEL 1900 ONCE XX ; Start 04/05/19 at 19:00; Stop 04/05/19 at 19:01 Insulin Glargine (Lantus) 10 units DAILY@2000 SC ; Start 04/04/19 at 20:00; Status Future Hold Lorazepam (Ativan) 1 mg Q2H PRN IV CONTROL WITHDRAWAL SYMPTOMS; Start 04/04/19 at 05:00 Miscellaneous Information 1 ea NOTE XX ; Start 04/04/19 at 04:30 Glucose (Glutose) 15 gm Q15M PRN PO DECREASED GLUCOSE; Start 04/04/19 at 04:30 Glucose (Glutose) 22.5 gm Q15M PRN PO DECREASED GLUCOSE; Start 04/04/19 at 04:30 Dextrose (D50w Syringe) 25 ml Q15M PRN IV DECREASED GLUCOSE; Start 04/04/19 at 04:30 Dextrose (D50w Syringe) 50 ml Q15M PRN IV DECREASED GLUCOSE; Start 04/04/19 at 04:30 Glucagon (Glucagen) 1 mg Q15M PRN IM DECREASED GLUCOSE; Start 04/04/19 at 04:30 Glucose (Glutose) 15 gm Q15M PRN BUCCAL DECREASED GLUCOSE; Start 04/04/19 at 04:30 Dextrose/Sodium Chloride 1,000 ml @ 75 mls/hr [id number] IV Last administered on 04/04/19at 04:35; Admin Dose 75 MLS/HR; Start 04/04/19 at 04:30 Insulin Aspart (Novolog Insulin Pen) NOVOLOG *MILD* ALGORI... Q4 SC Last administered on 04/04/19at 04:35; Admin Dose 3 UNIT; Start 04/04/19 at 05:00 Allergies: Coded Allergies: No Known Allergies (Verified Allergy, Mild, 10/02/17) Social History Alcohol Use: none Smoking Status: Never smoker Drug Use: none Exam/Review of Systems Exam Vitals Vital Signs Date Temp Pulse Resp B/P (MAP) Pulse Ox O2 O2 Flow FiO2 Time Delivery Rate 04/04/19 97.4 59 18 103/52 97 Room Air 07:28 (69) Exam PHYSICAL EXAMINATION: GENERAL: Alert & oriented x 3, in no acute distress SKIN: No lesions, no stigmata chronic liver disease, no evidence of bleeding diathesis LYMPHATIC: No palpable lymphadenopathy. HEAD: Normocephalic, atraumatic, no tenderness. EYES: Pupils equal reactive to light and accommodation, no discharge. EARS/NOSE AND THROAT: Ears normal, nose normal. NECK: Supple, no masses, carotids normal without bruits. CHEST: Inspection within normal limits. CARDIOVASCULAR: Heart: Regular rate and rhythm RESPIRATORY: Lungs clear to auscultation GASTROINTESTINAL AND LIVER: Abdomen: Soft, non tenderness, non-distended, no ascites, no guarding, no rebound tenderness, normoactive bowel sounds. Rectal: Deferred. EXTREMITIES: No cyanosis, clubbing or edema. Results Result Diagram: 04/04/19 0554 04/04/19 0044 Results 24hrs Laboratory Tests Test 04/03/19 19:31 04/03/19 19:37 04/03/19 19:38 04/03/19 19:51 Bedside Glucose > 595 *H White Blood Count 6.7 Red Blood Count 4.33 L Hemoglobin 13.1 L Hematocrit 36.2 L Mean Corpuscular 83.6 Volume Mean Corpuscular 30.3 Hemoglobin Mean Corpuscular 36.2 Hemoglobin Concen t Red Cell 11.9 Distribution Width Platelet Count 175 Mean Platelet 12.4 H Volume Immature 0.300 Granulocytes % Neutrophils % 58.9 Lymphocytes % 27.0 Monocytes % 12.3 H Eosinophils % 0.9 Basophils % 0.6 Nucleated Red 0.0 Blood Cells % Immature 0.020 Granulocytes # Neutrophils # 4.0 Lymphocytes # 1.8 Monocytes # 0.8 Eosinophils # 0.1 Basophils # 0.0 Nucleated Red 0.0 Blood Cells # Prothrombin Time 13.6 Prothrombin Time 1.1 Ratio INR International 1.03 Normalized Ratio Activated 27.5 Partial Thrombopl ast Time Sodium Level 130 L Potassium Level 4.2 Chloride Level 85 L Carbon Dioxide 21 Level Anion Gap 24 H Blood Urea 22 H Nitrogen Creatinine 1.50 H Est Glomerular 54 L Filtrat Rate mL/min Glucose Level 699 *H Hemoglobin A1c 11.4 H Calcium Level 10.8 H Phosphorus Level 2.8 Magnesium Level 1.9 Total Bilirubin 3.7 H Direct Bilirubin 0.00 Indirect 3.7 H Bilirubin Aspartate Amino 116 H Transf (AST/SGOT) Alanine 72 H Aminotransferase (ALT/SGPT) Alkaline 174 H Phosphatase Troponin I < 0.012 Total Protein 8.8 H Albumin 5.1 H Globulin 3.70 H Albumin/Globulin 1.37 Ratio POC Venous 7.1 *H Lactate Blood Gas Blood venous Specimen Source Arterial Blood 04/03/2019 8:25:5 Date Drawn 8 PM Arterial Blood VENOUS LINE Gas Puncture Site Robert Test N/A Venous Blood pH 7.419 Venous Blood pCO2 34.9 L (Temp Corrected) Venous Blood pO2 43.9 H (Temp Corrected) Venous Blood HCO3 22.1 Venous Blood 79.7 H Oxygen Saturation Venous Blood Base -1.8 Excess Venous Blood 13.0 Total Hemoglobin Venous Blood 78.8 Oxyhemoglobin Venous Blood 0.3 Methemoglobin Carboxyhemoglobin 0.8 Blood Gas 37.0 Temperature Blood Gas ROOM AIR Modality FiO2 21.0 Blood Gas MG Notified Whom Blood Gas 04/03/2019 8:38:2 Notified Time 7 PM Test 04/03/19 20:54 04/03/19 20:59 04/03/19 21:05 04/03/19 21:36 Urine Opiates Negative Screen Urine Negative Barbiturates Urine Positive Amphetamines Screen Urine Negative Benzodiazepines Screen Urine Cocaine Negative Screen Urine Negative Cannabinoids Urine Color YELLOW Urine Clarity CLEAR Urine pH 5.0 Urine Specific 1.024 [place] Urine Ketones TRACE A Urine Nitrite NEGATIVE Urine Bilirubin NEGATIVE Urine NEGATIVE Urobilinogen Urine Leukocyte NEGATIVE Esterase Urine Hemoglobin NEGATIVE Urine Glucose 3+ H Urine Total NEGATIVE Protein Bedside Glucose 448 *H 394 H Test 04/03/19 21:46 04/03/19 22:58 04/03/19 22:59 04/04/19 00:19 Lactic Acid Level 2.9 *H 4.4 *H Bedside Glucose 151 57 L Creatine Kinase 227 H Test 04/04/19 00:44 04/04/19 00:50 04/04/19 00:52 04/04/19 01:59 Sodium Level 143 Potassium Level 3.7 Chloride Level 103 # Carbon Dioxide 27 Level Anion Gap 13 # Blood Urea 17 Nitrogen Creatinine 1.09 Est Glomerular > 60 Filtrat Rate mL/min Glucose Level 120 # Calcium Level 9.7 Total Bilirubin 2.3 H Direct Bilirubin 0.00 Indirect 2.3 H Bilirubin Aspartate Amino 66 H Transf (AST/SGOT) Alanine 62 Aminotransferase (ALT/SGPT) Alkaline 114 Phosphatase Total Protein 7.9 Albumin 4.4 Globulin 3.50 H Albumin/Globulin 1.25 Ratio Ethyl Alcohol < 10.0 H Level Bedside Glucose 113 105 Test 04/04/19 02:56 04/04/19 03:29 04/04/19 04:31 04/04/19 05:53 Bedside Glucose 63 L 207 230 H Magnesium Level 1.5 L Triglycerides 146 Level Cholesterol Level 75 L LDL Cholesterol, 24 Calculated HDL Cholesterol 22 L Cholesterol/HDL 3.4 Ratio Thyroid 4.660 Stimulating Hormone (TSH) Test 04/04/19 05:54 04/04/19 05:55 04/04/19 06:09 White Blood Count 5.4 Red Blood Count 3.55 L Hemoglobin 10.7 L Hematocrit 30.5 L Mean Corpuscular 85.9 Volume Mean Corpuscular 30.1 Hemoglobin Mean Corpuscular 35.1 Hemoglobin Concen t Red Cell 12.1 Distribution Width Platelet Count 129 #L Mean Platelet 12.4 H Volume Immature 0.400 Granulocytes % Neutrophils % 53.2 Lymphocytes % 34.6 Monocytes % 9.9 Eosinophils % 1.3 Basophils % 0.6 Nucleated Red 0.0 Blood Cells % Immature 0.020 Granulocytes # Neutrophils # 2.9 Lymphocytes # 1.9 Monocytes # 0.5 Eosinophils # 0.1 Basophils # 0.0 Nucleated Red 0.0 Blood Cells # Lactic Acid Level 1.5 Bedside Glucose 173 Medications Medication Current Medications Sodium Chloride 1,000 ml @ 200 mls/hr Q5H IV Last administered on 04/04/19at 03:33; Admin Dose 200 MLS/HR; Start 04/03/19 at 22:32 Ondansetron HCl (Zofran Inj) 4 mg Q6H PRN IV NAUSEA AND/OR VOMITING; Start 04/03/19 at 23:00 Albuterol (Proventil 0.083% (Neb)) 2.5 mg Q2H RESP THERAPY PRN NEB SHORTNESS OF BREATH; Start 04/03/19 at 23:00 Ipratropium [place] (Atrovent 0.02% (Neb)) 0.5 mg Q2H RESP THERAPY PRN NEB SHORTNESS OF BREATH; Start 04/03/19 at 23:00 Acetaminophen (Tylenol Liquid) 650 mg Q6H PRN PO PAIN LEVEL 1-3 OR FEVER; Start 04/03/19 at 23:00 Acetaminophen/ Hydrocodone Bitart ([place] (5/325)) 1 tab Q6H PRN PO PAIN LEVEL 4-6; Start 04/03/19 at 23:00 Morphine Sulfate (morphine) 2 mg Q4H PRN IV PAIN LEVEL 7-10; Start 04/03/19 at 23:00 Docusate Sodium (Colace) 100 mg Q12H PRN PO CONSTIPATION; Start 04/03/19 at 23:00 Bisacodyl (Dulcolax) 5 mg DAILY PRN PO CONSTIPATION; Start 04/03/19 at 23:00 Famotidine (Pepcid Iv) 20 mg Q12 IV Last administered on 04/03/19at 22:55; Admin Dose 20 MG; Start 04/03/19 at 23:00 Heparin Sodium (Porcine) (Heparin (5000 Units/1ml)) 5,000 unit Q8 SC Last administered on 04/04/19at 06:23; Admin Dose 5,000 UNIT; Start 04/04/19 at 06:00 Insulin Human Regular 100 unit/ Sodium Chloride 100 ml @ 0 mls/hr PER PROTOCOL IV ; Start 04/03/19 at 23:00 Vancomycin HCl (Vanco Iv Per Pharmacy) VANCOMYCIN PER PHARMACY PER PROTOCOL XX ; Start 04/04/19 at 00:30 Piperacillin Sod/ Tazobactam Sod 100 ml @ 200 mls/hr Q6 IVPB Last administered on 04/04/19at 06:12; Admin Dose 200 MLS/HR; Start 04/04/19 at 00:30 Vancomycin HCl 250 ml @ 125 mls/hr Q12H IVPB ; Start 04/04/19 at 08:00 Miscellaneous Information (*Rx Drug Level Order Reminder*) VANCOMYCIN TROUGH LEVEL 1900 ONCE XX ; Start 04/05/19 at 19:00; Stop 04/05/19 at 19:01 Insulin Glargine (Lantus) 10 units DAILY@2000 SC ; Start 04/04/19 at 20:00; Status Future Hold Lorazepam (Ativan) 1 mg Q2H PRN IV CONTROL WITHDRAWAL SYMPTOMS; Start 04/04/19 at 05:00 Miscellaneous Information 1 ea NOTE XX ; Start 04/04/19 at 04:30 Glucose (Glutose) 15 gm Q15M PRN PO DECREASED GLUCOSE; Start 04/04/19 at 04:30 Glucose (Glutose) 22.5 gm Q15M PRN PO DECREASED GLUCOSE; Start 04/04/19 at 04:30 Dextrose (D50w Syringe) 25 ml Q15M PRN IV DECREASED GLUCOSE; Start 04/04/19 at 04:30 Dextrose (D50w Syringe) 50 ml Q15M PRN IV DECREASED GLUCOSE; Start 04/04/19 at 04:30 Glucagon (Glucagen) 1 mg Q15M PRN IM DECREASED GLUCOSE; Start 04/04/19 at 04:30 Glucose (Glutose) 15 gm Q15M PRN BUCCAL DECREASED GLUCOSE; Start 04/04/19 at 04:30 Dextrose/Sodium Chloride 1,000 ml @ 75 mls/hr [id number] IV Last administered on 04/04/19at 04:35; Admin Dose 75 MLS/HR; Start 04/04/19 at 04:30 Insulin Aspart (Novolog Insulin Pen) NOVOLOG *MILD* ALGORI... Q4 SC Last administered on 04/04/19at 04:35; Admin Dose 3 UNIT; Start 04/04/19 at 05:00 VERONICA CORBIN Apr 04, 2019 08:15
[2019-04-04] MEDS: FAMOTIDINE 20 MG INJ IV SCH (08:34)
[2019-04-04 11:24] VITALS: BP 103/58; PULSE 60; RESP 16
--- NOTE | 2019-04-04 12:07 | QN ---
Documentation Comment On a [id number] evaluation, patient is uncooperative with interview and girlfriend at the bedside will reevaluate tomorrow TRENT QUIROZ NP Apr 04, 2019 12:07
--- NOTE | 2019-04-04 12:53 | PN ---
Date/Time of Note Date/Time of Note DATE: 04/04/19 TIME: 12:51 Assessment/Plan VTE Prophylaxis SCD applied (from Nsg): Yes Pharmacological prophylaxis: heparin Lines/Catheters IV Catheter Type (from Nrsg): Saline Lock Assessment/Plan Hospital Course 33-year-old male with type 1 diabetes who presented with leg tingling and weakne ss. Found to be in DKA and with elevated bili's and dilated CBD DKA: -Resolved transition to basal bolus Hyperbilirubinemia with dilated biliary ducts: -He has been started on antibiotics will continue Zosyn for now -Management per GI Schizophrenia: Management per psychiatry Result Diagram: 04/04/19 0554 04/04/19 0044 Results 24hrs Laboratory Tests Test 04/03/19 19:31 04/03/19 19:37 04/03/19 19:38 04/03/19 19:51 Bedside Glucose > 595 *H White Blood Count 6.7 Red Blood Count 4.33 L Hemoglobin 13.1 L Hematocrit 36.2 L Mean Corpuscular 83.6 Volume Mean Corpuscular 30.3 Hemoglobin Mean Corpuscular 36.2 Hemoglobin Concen t Red Cell 11.9 Distribution Width Platelet Count 175 Mean Platelet 12.4 H Volume Immature 0.300 Granulocytes % Neutrophils % 58.9 Lymphocytes % 27.0 Monocytes % 12.3 H Eosinophils % 0.9 Basophils % 0.6 Nucleated Red 0.0 Blood Cells % Immature 0.020 Granulocytes # Neutrophils # 4.0 Lymphocytes # 1.8 Monocytes # 0.8 Eosinophils # 0.1 Basophils # 0.0 Nucleated Red 0.0 Blood Cells # Prothrombin Time 13.6 Prothrombin Time 1.1 Ratio INR International 1.03 Normalized Ratio Activated 27.5 Partial Thrombopl ast Time Sodium Level 130 L Potassium Level 4.2 Chloride Level 85 L Carbon Dioxide 21 Level Anion Gap 24 H Blood Urea 22 H Nitrogen Creatinine 1.50 H Est Glomerular 54 L Filtrat Rate mL/min Glucose Level 699 *H Hemoglobin A1c 11.4 H Calcium Level 10.8 H Phosphorus Level 2.8 Magnesium Level 1.9 Total Bilirubin 3.7 H Direct Bilirubin 0.00 Indirect 3.7 H Bilirubin Aspartate Amino 116 H Transf (AST/SGOT) Alanine 72 H Aminotransferase (ALT/SGPT) Alkaline 174 H Phosphatase Troponin I < 0.012 Total Protein 8.8 H Albumin 5.1 H Globulin 3.70 H Albumin/Globulin 1.37 Ratio POC Venous 7.1 *H Lactate Blood Gas Blood venous Specimen Source Arterial Blood 04/03/2019 8:25:5 Date Drawn 8 PM Arterial Blood VENOUS LINE Gas Puncture Site Robert Test N/A Venous Blood pH 7.419 Venous Blood pCO2 34.9 L (Temp Corrected) Venous Blood pO2 43.9 H (Temp Corrected) Venous Blood HCO3 22.1 Venous Blood 79.7 H Oxygen Saturation Venous Blood Base -1.8 Excess Venous Blood 13.0 Total Hemoglobin Venous Blood 78.8 Oxyhemoglobin Venous Blood 0.3 Methemoglobin Carboxyhemoglobin 0.8 Blood Gas 37.0 Temperature Blood Gas ROOM AIR Modality FiO2 21.0 Blood Gas MG Notified Whom Blood Gas 04/03/2019 8:38:2 Notified Time 7 PM Test 04/03/19 20:54 04/03/19 20:59 04/03/19 21:05 04/03/19 21:36 Urine Opiates Negative Screen Urine Negative Barbiturates Urine Positive Amphetamines Screen Urine Negative Benzodiazepines Screen Urine Cocaine Negative Screen Urine Negative Cannabinoids Urine Color YELLOW Urine Clarity CLEAR Urine pH 5.0 Urine Specific 1.024 [place] Urine Ketones TRACE A Urine Nitrite NEGATIVE Urine Bilirubin NEGATIVE Urine NEGATIVE Urobilinogen Urine Leukocyte NEGATIVE Esterase Urine Hemoglobin NEGATIVE Urine Glucose 3+ H Urine Total NEGATIVE Protein Bedside Glucose 448 *H 394 H Test 04/03/19 21:46 04/03/19 22:58 04/03/19 22:59 04/04/19 00:19 Lactic Acid Level 2.9 *H 4.4 *H Bedside Glucose 151 57 L Creatine Kinase 227 H Test 04/04/19 00:44 04/04/19 00:50 04/04/19 00:52 04/04/19 01:59 Sodium Level 143 Potassium Level 3.7 Chloride Level 103 # Carbon Dioxide 27 Level Anion Gap 13 # Blood Urea 17 Nitrogen Creatinine 1.09 Est Glomerular > 60 Filtrat Rate mL/min Glucose Level 120 # Calcium Level 9.7 Total Bilirubin 2.3 H Direct Bilirubin 0.00 Indirect 2.3 H Bilirubin Aspartate Amino 66 H Transf (AST/SGOT) Alanine 62 Aminotransferase (ALT/SGPT) Alkaline 114 Phosphatase Total Protein 7.9 Albumin 4.4 Globulin 3.50 H Albumin/Globulin 1.25 Ratio Ethyl Alcohol < 10.0 H Level Bedside Glucose 113 105 Test 04/04/19 02:56 04/04/19 03:29 04/04/19 04:31 04/04/19 05:53 Bedside Glucose 63 L 207 230 H Magnesium Level 1.5 L Triglycerides 146 Level Cholesterol Level 75 L LDL Cholesterol, 24 Calculated HDL Cholesterol 22 L Cholesterol/HDL 3.4 Ratio Thyroid 4.660 Stimulating Hormone (TSH) Test 04/04/19 05:54 04/04/19 05:55 04/04/19 06:09 04/04/19 08:32 White Blood Count 5.4 Red Blood Count 3.55 L Hemoglobin 10.7 L Hematocrit 30.5 L Mean Corpuscular 85.9 Volume Mean Corpuscular 30.1 Hemoglobin Mean Corpuscular 35.1 Hemoglobin Concen t Red Cell 12.1 Distribution Width Platelet Count 129 #L Mean Platelet 12.4 H Volume Immature 0.400 Granulocytes % Neutrophils % 53.2 Lymphocytes % 34.6 Monocytes % 9.9 Eosinophils % 1.3 Basophils % 0.6 Nucleated Red 0.0 Blood Cells % Immature 0.020 Granulocytes # Neutrophils # 2.9 Lymphocytes # 1.9 Monocytes # 0.5 Eosinophils # 0.1 Basophils # 0.0 Nucleated Red 0.0 Blood Cells # Creatine Kinase 877 #H Lactic Acid Level 1.5 Bedside Glucose 173 114 Test 04/04/19 09:05 04/04/19 12:35 Lactic Acid Level 1.3 Bedside Glucose 182 Subjective 24 Hr Interval Summary Free Text/Dictation Not affect. Did not want to talk with me. Per his girlfriend at bedside the patient is feeling better from his presenting symptoms Exam/Review of Systems Exam Vitals Vital Signs Date Temp Pulse Resp B/P (MAP) Pulse Ox O2 O2 Flow FiO2 Time Delivery Rate 04/04/19 98.5 60 16 103/58 95 11:24 (73) 04/04/19 Room Air 07:28 Constitutional: alert, oriented, well developed Psych: no complaints, nl mood/affect Head: normocephalic, atraumatic Eyes: nl conjunctiva, EOMI, nl lids, nl sclera, PERRL ENMT: nl external ears & nose, nl lips & teeth, nl nasal mucosa & septum Neck: supple, non-tender Respiratory: clear to auscultation, normal air movement Cardiovascular: regular rate and rhythm, nl pulses Gastrointestinal: soft, nl liver, spleen, non-tender Musculoskeletal: nl extremities to inspection, nl gait and stance Extremities: normal pulses Neurological: LAS[employer] II-XII intact, nl mental status, nl speech, nl strength Skin: nl turgor; No rash or lesions Lymph: nl lymph nodes Results Results 24hrs Laboratory Tests Test 04/03/19 19:31 04/03/19 19:37 04/03/19 19:38 04/03/19 19:51 Bedside Glucose > 595 *H White Blood Count 6.7 Red Blood Count 4.33 L Hemoglobin 13.1 L Hematocrit 36.2 L Mean Corpuscular 83.6 Volume Mean Corpuscular 30.3 Hemoglobin Mean Corpuscular 36.2 Hemoglobin Concen t Red Cell 11.9 Distribution Width Platelet Count 175 Mean Platelet 12.4 H Volume Immature 0.300 Granulocytes % Neutrophils % 58.9 Lymphocytes % 27.0 Monocytes % 12.3 H Eosinophils % 0.9 Basophils % 0.6 Nucleated Red 0.0 Blood Cells % Immature 0.020 Granulocytes # Neutrophils # 4.0 Lymphocytes # 1.8 Monocytes # 0.8 Eosinophils # 0.1 Basophils # 0.0 Nucleated Red 0.0 Blood Cells # Prothrombin Time 13.6 Prothrombin Time 1.1 Ratio INR International 1.03 Normalized Ratio Activated 27.5 Partial Thrombopl ast Time Sodium Level 130 L Potassium Level 4.2 Chloride Level 85 L Carbon Dioxide 21 Level Anion Gap 24 H Blood Urea 22 H Nitrogen Creatinine 1.50 H Est Glomerular 54 L Filtrat Rate mL/min Glucose Level 699 *H Hemoglobin A1c 11.4 H Calcium Level 10.8 H Phosphorus Level 2.8 Magnesium Level 1.9 Total Bilirubin 3.7 H Direct Bilirubin 0.00 Indirect 3.7 H Bilirubin Aspartate Amino 116 H Transf (AST/SGOT) Alanine 72 H Aminotransferase (ALT/SGPT) Alkaline 174 H Phosphatase Troponin I < 0.012 Total Protein 8.8 H Albumin 5.1 H Globulin 3.70 H Albumin/Globulin 1.37 Ratio POC Venous 7.1 *H Lactate Blood Gas Blood venous Specimen Source Arterial Blood 04/03/2019 8:25:5 Date Drawn 8 PM Arterial Blood VENOUS LINE Gas Puncture Site Robert Test N/A Venous Blood pH 7.419 Venous Blood pCO2 34.9 L (Temp Corrected) Venous Blood pO2 43.9 H (Temp Corrected) Venous Blood HCO3 22.1 Venous Blood 79.7 H Oxygen Saturation Venous Blood Base -1.8 Excess Venous Blood 13.0 Total Hemoglobin Venous Blood 78.8 Oxyhemoglobin Venous Blood 0.3 Methemoglobin Carboxyhemoglobin 0.8 Blood Gas 37.0 Temperature Blood Gas ROOM AIR Modality FiO2 21.0 Blood Gas MG Notified Whom Blood Gas 04/03/2019 8:38:2 Notified Time 7 PM Test 04/03/19 20:54 04/03/19 20:59 04/03/19 21:05 04/03/19 21:36 Urine Opiates Negative Screen Urine Negative Barbiturates Urine Positive Amphetamines Screen Urine Negative Benzodiazepines Screen Urine Cocaine Negative Screen Urine Negative Cannabinoids Urine Color YELLOW Urine Clarity CLEAR Urine pH 5.0 Urine Specific 1.024 [place] Urine Ketones TRACE A Urine Nitrite NEGATIVE Urine Bilirubin NEGATIVE Urine NEGATIVE Urobilinogen Urine Leukocyte NEGATIVE Esterase Urine Hemoglobin NEGATIVE Urine Glucose 3+ H Urine Total NEGATIVE Protein Bedside Glucose 448 *H 394 H Test 04/03/19 21:46 04/03/19 22:58 04/03/19 22:59 04/04/19 00:19 Lactic Acid Level 2.9 *H 4.4 *H Bedside Glucose 151 57 L Creatine Kinase 227 H Test 04/04/19 00:44 04/04/19 00:50 04/04/19 00:52 04/04/19 01:59 Sodium Level 143 Potassium Level 3.7 Chloride Level 103 # Carbon Dioxide 27 Level Anion Gap 13 # Blood Urea 17 Nitrogen Creatinine 1.09 Est Glomerular > 60 Filtrat Rate mL/min Glucose Level 120 # Calcium Level 9.7 Total Bilirubin 2.3 H Direct Bilirubin 0.00 Indirect 2.3 H Bilirubin Aspartate Amino 66 H Transf (AST/SGOT) Alanine 62 Aminotransferase (ALT/SGPT) Alkaline 114 Phosphatase Total Protein 7.9 Albumin 4.4 Globulin 3.50 H Albumin/Globulin 1.25 Ratio Ethyl Alcohol < 10.0 H Level Bedside Glucose 113 105 Test 04/04/19 02:56 04/04/19 03:29 04/04/19 04:31 04/04/19 05:53 Bedside Glucose 63 L 207 230 H Magnesium Level 1.5 L Triglycerides 146 Level Cholesterol Level 75 L LDL Cholesterol, 24 Calculated HDL Cholesterol 22 L Cholesterol/HDL 3.4 Ratio Thyroid 4.660 Stimulating Hormone (TSH) Test 04/04/19 05:54 04/04/19 05:55 04/04/19 06:09 04/04/19 08:32 White Blood Count 5.4 Red Blood Count 3.55 L Hemoglobin 10.7 L Hematocrit 30.5 L Mean Corpuscular 85.9 Volume Mean Corpuscular 30.1 Hemoglobin Mean Corpuscular 35.1 Hemoglobin Concen t Red Cell 12.1 Distribution Width Platelet Count 129 #L Mean Platelet 12.4 H Volume Immature 0.400 Granulocytes % Neutrophils % 53.2 Lymphocytes % 34.6 Monocytes % 9.9 Eosinophils % 1.3 Basophils % 0.6 Nucleated Red 0.0 Blood Cells % Immature 0.020 Granulocytes # Neutrophils # 2.9 Lymphocytes # 1.9 Monocytes # 0.5 Eosinophils # 0.1 Basophils # 0.0 Nucleated Red 0.0 Blood Cells # Creatine Kinase 877 #H Lactic Acid Level 1.5 Bedside Glucose 173 114 Test 04/04/19 09:05 04/04/19 12:35 Lactic Acid Level 1.3 Bedside Glucose 182 Medications Medication Current Medications Ondansetron HCl (Zofran Inj) 4 mg Q6H PRN IV NAUSEA AND/OR VOMITING; Start 04/03/19 at 23:00 Albuterol (Proventil 0.083% (Neb)) 2.5 mg Q2H RESP THERAPY PRN NEB SHORTNESS OF BREATH; Start 04/03/19 at 23:00 Ipratropium [place] (Atrovent 0.02% (Neb)) 0.5 mg Q2H RESP THERAPY PRN NEB SHORTNESS OF BREATH; Start 04/03/19 at 23:00 Acetaminophen (Tylenol Liquid) 650 mg Q6H PRN PO PAIN LEVEL 1-3 OR FEVER; Start 04/03/19 at 23:00 Acetaminophen/ Hydrocodone Bitart ([place] (5/325)) 1 tab Q6H PRN PO PAIN LEVEL 4-6; Start 04/03/19 at 23:00 Docusate Sodium (Colace) 100 mg Q12H PRN PO CONSTIPATION; Start 04/03/19 at 2 3:00 Bisacodyl (Dulcolax) 5 mg DAILY PRN PO CONSTIPATION; Start 04/03/19 at 23:00 Heparin Sodium (Porcine) (Heparin (5000 Units/1ml)) 5,000 unit Q8 SC Last administered on 04/04/19at 06:23; Admin Dose 5,000 UNIT; Start 04/04/19 at 06:00 Piperacillin Sod/ Tazobactam Sod 100 ml @ 200 mls/hr Q6 IVPB Last administered on 04/04/19at 12:40; Admin Dose 200 MLS/HR; Start 04/04/19 at 00:30 Lorazepam (Ativan) 1 mg Q2H PRN IV CONTROL WITHDRAWAL SYMPTOMS; Start 04/04/19 at 05:00 Miscellaneous Information 1 ea NOTE XX ; Start 04/04/19 at 04:30 Glucose (Glutose) 15 gm Q15M PRN PO DECREASED GLUCOSE; Start 04/04/19 at 04:30 Glucose (Glutose) 22.5 gm Q15M PRN PO DECREASED GLUCOSE; Start 04/04/19 at 04: 30 Dextrose (D50w Syringe) 25 ml Q15M PRN IV DECREASED GLUCOSE; Start 04/04/19 at 04:30 Dextrose (D50w Syringe) 50 ml Q15M PRN IV DECREASED GLUCOSE; Start 04/04/19 at 04:30 Glucagon (Glucagen) 1 mg Q15M PRN IM DECREASED GLUCOSE; Start 04/04/19 at 04:30 Glucose (Glutose) 15 gm Q15M PRN BUCCAL DECREASED GLUCOSE; Start 04/04/19 at 04:30 Diagnostic Test (Pha) (Accu-Chek) 1 ea 02 XX ; Start 04/05/19 at 02:00 Insulin Glargine (Lantus) 12 units DAILY@2000 SC ; Start 04/04/19 at 20:00 Insulin Aspart (Novolog Insulin Pen) 4 unit WITH MEALS SC Last administered on 04/04/19at 12:48; Admin Dose 4 UNIT; Start 04/04/19 at 11:50 Insulin Aspart (Novolog Insulin Pen) NOVOLOG *MILD* ALGORITHM WITH MEALS BEDTIME SC Last administered on 04/04/19at 12:48; Admin Dose 2 UNIT; Start 04/04/19 at 11:50 KALYAN DUPREE MD Apr 04, 2019 12:53
[2019-04-04 15:15] VITALS: BP 106/58; PULSE 68; RESP 16
[2019-04-04 17:16] VITALS: BP 127/61; PULSE 86; RESP 18
[2019-04-04] MEDS ORDERED: INSULIN GLARGINE [LANTus] (100 UNITS/ML) SYG SC SCH ×2 (20:00)
[2019-04-04 20:09] VITALS: BP 109/59; PULSE 74; RESP 18
[2019-04-05] MEDS ORDERED: ACCU-CHEK XX ONE ×2 (02:00→06:30)
[2019-04-05] MEDS ORDERED: INSULIN ASPART [NOVOLOG] 3 ML PEN SC ONE ×2 (02:00→04:30)
[2019-04-05] MEDS ORDERED: ACCU-CHEK XX SCH ×3 (02:00)
[2019-04-05] MEDS: ACCU-CHEK XX SCH (02:27)
[2019-04-05 03:16] VITALS: BP 110/53; PULSE 78; RESP 18
[2019-04-05] MEDS: HEPARIN 5,000 UNIT/1 ML VIAL SC SCH ×2 (06:00→13:33)
[2019-04-05] MEDS: PIPER-TAZO 3.375 GM IV (PMX) 100 ML IVPB SCH ×3 (06:16→17:41)
[2019-04-05] MEDS: INSULIN ASPART [NOVOLOG] 3 ML PEN SC SCH ×6 (09:42→20:59)
--- NOTE | 2019-04-05 10:19 | PN ---
Date/Time of Note Date/Time of Note DATE: 04/05/19 TIME: 10:13 Assessment/Plan VTE Prophylaxis Risk score (from Ns)>0 risk: 0 SCD applied (from Ns): Yes Pharmacological prophylaxis: heparin Lines/Catheters IV Catheter Type (from Nrsg): Saline Lock Assessment/Plan Assessment/Plan Assessment: DKA Indirect hyperbilirubinemia with a mild transaminitis Thrombocytopenia SARA- resolved Toxicology screen positive for amphetamines Plan: Unable to obtain MRCP secondary to metal in right hand Hepatitis serology ASMA, DEANNA, AMA Trend LFTs GI will sign off at this time. Pt seen in collaboration with Dr. Kevin Subjective: Patient is doing well. Denies abdominal pain. Liver function test and bilirubin are within normal. With no further recommendations GI will sign off and will be available to reconsult upon request. PHYSICAL EXAMINATION: GENERAL: Alert & oriented x 3, in no acute distress SKIN: No lesions, no stigmata chronic liver disease, no evidence of bleeding diathesis LYMPHATIC: No palpable lymphadenopathy. HEAD: Normocephalic, atraumatic, no tenderness. EYES: Pupils equal reactive to light and accommodation, no discharge. EARS/NOSE AND THROAT: Ears normal, nose normal. NECK: Supple, no masses, carotids normal without bruits. CHEST: Inspection within normal limits. CARDIOVASCULAR: Heart: Regular rate and rhythm RESPIRATORY: Lungs clear to auscultation GASTROINTESTINAL AND LIVER: Abdomen: Soft, non tenderness, non-distended, no ascites, no guarding, no rebound tenderness, normoactive bowel sounds. Rectal: Deferred. EXTREMITIES: No cyanosis, clubbing or edema. Result Diagram: 04/05/1990804/05/19 0909 Results 24hrs Laboratory Tests Test 04/04/19 12:35 04/04/19 17:32 04/04/19 21:02 04/05/19 01:43 Bedside Glucose 182 255 H 299 H 431 *H Test 04/05/19 02:26 04/05/19 04:00 04/05/19 06:16 04/05/19 09:09 Sodium Level 139 142 Potassium Level 4.4 3.5 Chloride Level 101 106 Carbon Dioxide Level 30 30 Anion Gap 8 6 Blood Urea Nitrogen 11 11 Creatinine 0.92 0.90 Est Glomerular > 60 > 60 Filtrat Rate mL/min Glucose Level 393 H 101 # Calcium Level 9.0 9.1 Total Bilirubin 1.3 1.1 Direct Bilirubin 0.00 0.00 Indirect Bilirubin 1.3 H 1.1 Aspartate Amino 52 H 41 Transf (AST/SGOT) Alanine 54 51 Aminotransferase (AL T/SGPT) Alkaline Phosphatase 92 78 Total Protein 6.3 # 6.4 Albumin 3.5 3.4 Globulin 2.80 3.00 Albumin/Globulin 1.25 1.13 Ratio Bedside Glucose 303 H 133 White Blood Count 5.1 Red Blood Count 3.84 L Hemoglobin 11.7 L Hematocrit 33.2 L Mean Corpuscular 86.5 Volume Mean Corpuscular 30.5 Hemoglobin Mean Corpuscular 35.2 Hemoglobin Concent Red Cell 12.6 Distribution Width Platelet Count 150 Mean Platelet Volume 12.1 H Immature 0.400 Granulocytes % Neutrophils % 48.3 Lymphocytes % 40.2 Monocytes % 8.9 Eosinophils % 1.6 Basophils % 0.6 Nucleated Red Blood 0.0 Cells % Immature 0.020 Granulocytes # Neutrophils # 2.5 Lymphocytes # 2.0 Monocytes # 0.5 Eosinophils # 0.1 Basophils # 0.0 Nucleated Red Blood 0.0 Cells # Prothrombin Time 13.6 Prothrombin Time 1.1 Ratio INR International 1.03 Normalized Ratio CC: ANGELA KEVIN MD ; Exam/Review of Systems Exam Vitals Vital Signs Date Temp Pulse Resp B/P (MAP) Pulse Ox O2 O2 Flow FiO2 Time Delivery Rate 04/05/19 98.1 78 18 110/53 99 Room Air 03:16 (72) Intake and Output 04/04/19 04/04/19 04/05/19 1414:59 22:59 06:59 IntakeIntake Total 400 ml 100 ml BalanceBalance 400 ml 100 ml Results Results 24hrs Laboratory Tests Test 04/04/19 12:35 04/04/19 17:32 04/04/19 21:02 04/05/19 01:43 Bedside Glucose 182 255 H 299 H 431 *H Test 04/05/19 02:26 04/05/19 04:00 04/05/19 06:16 04/05/19 09:09 Sodium Level 139 142 Potassium Level 4.4 3.5 Chloride Level 101 106 Carbon Dioxide Level 30 30 Anion Gap 8 6 Blood Urea Nitrogen 11 11 Creatinine 0.92 0.90 Est Glomerular > 60 > 60 Filtrat Rate mL/min Glucose Level 393 H 101 # Calcium Level 9.0 9.1 Total Bilirubin 1.3 1.1 Direct Bilirubin 0.00 0.00 Indirect Bilirubin 1.3 H 1.1 Aspartate Amino 52 H 41 Transf (AST/SGOT) Alanine 54 51 Aminotransferase (AL T/SGPT) Alkaline Phosphatase 92 78 Total Protein 6.3 # 6.4 Albumin 3.5 3.4 Globulin 2.80 3.00 Albumin/Globulin 1.25 1.13 Ratio Bedside Glucose 303 H 133 White Blood Count 5.1 Red Blood Count 3.84 L Hemoglobin 11.7 L Hematocrit 33.2 L Mean Corpuscular 86.5 Volume Mean Corpuscular 30.5 Hemoglobin Mean Corpuscular 35.2 Hemoglobin Concent Red Cell 12.6 Distribution Width Platelet Count 150 Mean Platelet Volume 12.1 H Immature 0.400 Granulocytes % Neutrophils % 48.3 Lymphocytes % 40.2 Monocytes % 8.9 Eosinophils % 1.6 Basophils % 0.6 Nucleated Red Blood 0.0 Cells % Immature 0.020 Granulocytes # Neutrophils # 2.5 Lymphocytes # 2.0 Monocytes # 0.5 Eosinophils # 0.1 Basophils # 0.0 Nucleated Red Blood 0.0 Cells # Prothrombin Time 13.6 Prothrombin Time 1.1 Ratio INR International 1.03 Normalized Ratio Medications Medication Current Medications Ondansetron HCl (Zofran Inj) 4 mg Q6H PRN IV NAUSEA AND/OR VOMITING; Start 04/03/19 at 23:00 Albuterol (Proventil 0.083% (Neb)) 2.5 mg Q2H RESP THERAPY PRN NEB SHORTNESS OF BREATH; Start 04/03/19 at 23:00 Ipratropium [place] (Atrovent 0.02% (Neb)) 0.5 mg Q2H RESP THERAPY PRN NEB SHORTNESS OF BREATH; Start 04/03/19 at 23:00 Acetaminophen (Tylenol Liquid) 650 mg Q6H PRN PO PAIN LEVEL 1-3 OR FEVER; Start 04/03/19 at 23:00 Acetaminophen/ Hydrocodone Bitart ([place] (5/325)) 1 tab Q6H PRN PO PAIN LEVEL 4-6; Start 04/03/19 at 23:00 Docusate Sodium (Colace) 100 mg Q12H PRN PO CONSTIPATION; Start 04/03/19 at 23:00 Bisacodyl (Dulcolax) 5 mg DAILY PRN PO CONSTIPATION; Start 04/03/19 at 23:00 Heparin Sodium (Porcine) (Heparin (5000 Units/1ml)) 5,000 unit Q8 SC Last administered on 04/04/19at 21:08; Admin Dose 5,000 UNIT; Start 04/04/19 at 06:00 Piperacillin Sod/ Tazobactam Sod 100 ml @ 200 mls/hr Q6 IVPB Last administered on 04/05/19at 06:16; Admin Dose 200 MLS/HR; Start 04/04/19 at 00:30 Lorazepam (Ativan) 1 mg Q2H PRN IV CONTROL WITHDRAWAL SYMPTOMS; Start 04/04/19 at 05:00 Miscellaneous Information 1 ea NOTE XX ; Start 04/04/19 at 04:30 Glucose (Glutose) 15 gm Q15M PRN PO DECREASED GLUCOSE; Start 04/04/19 at 04:30 Glucose (Glutose) 22.5 gm Q15M PRN PO DECREASED GLUCOSE; Start 04/04/19 at 04:30 Dextrose (D50w Syringe) 25 ml Q15M PRN IV DECREASED GLUCOSE; Start 04/04/19 at 04:30 Dextrose (D50w Syringe) 50 ml Q15M PRN IV DECREASED GLUCOSE; Start 04/04/19 at 04:30 Glucagon (Glucagen) 1 mg Q15M PRN IM DECREASED GLUCOSE; Start 04/04/19 at 04:30 Glucose (Glutose) 15 gm Q15M PRN BUCCAL DECREASED GLUCOSE; Start 04/04/19 at 04:30 Insulin Glargine (Lantus) 12 units DAILY@2000 SC Last administered on 04/04/19at 21:12; Admin Dose 12 UNITS; Start 04/04/19 at 20:00 Insulin Aspart (Novolog Insulin Pen) 4 unit WITH MEALS SC Last administered on 04/04/19at 17:34; Admin Dose 4 UNIT; Start 04/04/19 at 11:50 Diagnostic Test (Pha) (Accu-Chek) 1 ea 02 XX Last administered on 04/05/19at 02:27; Admin Dose 1 EA; Start 04/05/19 at 02:00 Insulin Aspart (Novolog Insulin Pen) NOVOLOG *MODERATE* ALGORITHM WITH MEALS BEDTIME SC ; Start 04/05/19 at 08:00 JEIMY CASTREJON NP Apr 05, 2019 10:19
--- NOTE | 2019-04-05 13:28 | CONS ---
Assessment/Plan Assessment/Plan Problems: (1) Diabetes mellitus type 1 with hyperosmolarity Status: Chronic Comment: His sugars have come into line nicely using our preset protocols. His note he was not in DKA and is not in DKA presently. Qualifiers: Qualified Codes: E10.69 - Type 1 diabetes mellitus with other specified complication (2) Abnormal liver function tests Status: Chronic Comment: Is been seen in consultation by gastroenterology who has already signed off the case. Trend the LFTs. (3) Chronic pancreatitis Status: Chronic Comment: The imaging studies this certainly looks like he has chronic pancreatitis. The etiology of this is not clear. Consideration for usage of pancreatic enzyme replacement therapy? As per primary team Qualifiers: Qualified Codes: K86.1 - Other chronic pancreatitis (4) Positive urine drug screen Status: Acute Comment: As per primary team (5) Lactic acidosis Status: Resolved Comment: Fortunately resolved (6) Paranoid type schizophrenia, chronic state Status: Chronic Comment: As per psychiatric corporate health consultant. Consultation Date/Type/Reason Admit Date/Time April 03 2019 Date of Consultation: Apr 04, 2019 Type of Consult Endocrinology Reason for Consultation Reported diabetes mellitus type 1 admitted with lactic acidosis errantly labeled his DKA Requesting Provider: PORSHA SILVER Date/Time of Note DATE: 04/05/19 TIME: 13:22 Hx of Present Illness 33-year-old single male admitted with diabetes out of control and lactic acidosis. I did attempt to interview him on the and again today on the . He is more awake today and makes it clear in no uncertain terms that he does not wish to work with me at this time. He is not at the time of admission he had a serum pH of 7.42 with serum bicarbonate of 21 in the setting of elevated lactic acid level. He had markedly elevated blood sugars. Such this is an a dmission with lactic acidosis not diabetic ketoacidosis he was however hyperosmolar, with hyperglycemia Patient declines to be interviewed Subjective hx not possible: pt non-verbal Past Medical History Medical History: diabetes (Reported his type 1 diabetes), other (To affective disorder) Home Meds Reported Medications Insulin Lispro (Humalog) 100 U/Ml Vial 11/15/09 Insulin Human Isophan/Regular (Novolin 70/30) 100 Unit/Ml Susp 11/11/09 Medications Current Medications Ondansetron HCl (Zofran Inj) 4 mg Q6H PRN IV NAUSEA AND/OR VOMITING; Start 04/03/19 at 23:00 Albuterol (Proventil 0.083% (Neb)) 2.5 mg Q2H RESP THERAPY PRN NEB SHORTNESS OF BREATH; Start 04/03/19 at 23:00 Ipratropium [place] (Atrovent 0.02% (Neb)) 0.5 mg Q2H RESP THERAPY PRN NEB SHORTNESS OF BREATH; Start 04/03/19 at 23:00 Acetaminophen (Tylenol Liquid) 650 mg Q6H PRN PO PAIN LEVEL 1-3 OR FEVER; Start 04/03/19 at 23:00 Acetaminophen/ Hydrocodone Bitart ([place] (5/325)) 1 tab Q6H PRN PO PAIN LEVEL 4-6; Start 04/03/19 at 23:00 Docusate Sodium (Colace) 100 mg Q12H PRN PO CONSTIPATION; Start 04/03/19 at 23:00 Bisacodyl (Dulcolax) 5 mg DAILY PRN PO CONSTIPATION; Start 04/03/19 at 23:00 Heparin Sodium (Porcine) (Heparin (5000 Units/1ml)) 5,000 unit Q8 SC Last administered on 04/04/19at 21:08; Admin Dose 5,000 UNIT; Start 04/04/19 at 06:00 Piperacillin Sod/ Tazobactam Sod 100 ml @ 200 mls/hr Q6 IVPB Last administered on 04/05/19at 12:17; Admin Dose 200 MLS/HR; Start 04/04/19 at 00:30 Lorazepam (Ativan) 1 mg Q2H PRN IV CONTROL WITHDRAWAL SYMPTOMS; Start 04/04/19 at 05:00 Miscellaneous Information 1 ea NOTE XX ; Start 04/04/19 at 04:30 Glucose (Glutose) 15 gm Q15M PRN PO DECREASED GLUCOSE; Start 04/04/19 at 04:30 Glucose (Glutose) 22.5 gm Q15M PRN PO DECREASED GLUCOSE; Start 04/04/19 at 04:30 Dextrose (D50w Syringe) 25 ml Q15M PRN IV DECREASED GLUCOSE; Start 04/04/19 at 04:30 Dextrose (D50w Syringe) 50 ml Q15M PRN IV DECREASED GLUCOSE; Start 04/04/19 at 04:30 Glucagon (Glucagen) 1 mg Q15M PRN IM DECREASED GLUCOSE; Start 04/04/19 at 04:30 Glucose (Glutose) 15 gm Q15M PRN BUCCAL DECREASED GLUCOSE; Start 04/04/19 at 04:30 Insulin Glargine (Lantus) 12 units DAILY@2000 SC Last administered on 04/04/19at 21:12; Admin Dose 12 UNITS; Start 04/04/19 at 20:00 Insulin Aspart (Novolog Insulin Pen) 4 unit WITH MEALS SC Last administered on 04/04/19at 17:34; Admin Dose 4 UNIT; Start 04/04/19 at 11:50 Diagnostic Test (Pha) (Accu-Chek) 1 ea 02 XX Last administered on 04/05/19at 02:27; Admin Dose 1 EA; Start 04/05/19 at 02:00 Insulin Aspart (Novolog Insulin Pen) NOVOLOG *MODERATE* ALGORITHM WITH MEALS BEDTIME SC ; Start 04/05/19 at 08:00 Allergies: Coded Allergies: No Known Allergies (Verified Allergy, Mild, 10/02/17) Past Surgical History Past Surgical Hx: noncontributory Family History Significant Family History: no pertinent family hx (Family history cannot be obtained) Social History Alcohol Use: none Smoking Status: Never smoker Drug Use: none (His girlfriend reports no history of illicit drug usage, please see the tox screen is positive for amphetamines) Exam/Review of Systems Exam Vitals Vital Signs Date Temp Pulse Resp B/P (MAP) Pulse Ox O2 O2 Flow FiO2 Time Delivery Rate 04/05/19 98.1 78 18 110/53 99 Room Air 03:16 (72) Intake and Output 04/04/19 04/04/19 04/05/19 1515:00 23:00 07:00 IntakeIntake Total 400 ml 100 ml BalanceBalance 400 ml 100 ml Exam Declines examination Constitutional: non-verbal Results Result Diagram: 04/05/19 0909 04/05/19 0909 Results 24hrs Laboratory Tests Test 04/04/19 17:32 04/04/19 21:02 04/05/19 01:43 04/05/19 02:26 Bedside Glucose 255 H 299 H 431 *H Sodium Level 139 Potassium Level 4.4 Chloride Level 101 Carbon Dioxide Level 30 Anion Gap 8 Blood Urea Nitrogen 11 Creatinine 0.92 Est Glomerular > 60 Filtrat Rate mL/min Glucose Level 393 H Calcium Level 9.0 Total Bilirubin 1.3 Direct Bilirubin 0.00 Indirect Bilirubin 1.3 H Aspartate Amino 52 H Transf (AST/SGOT) Alanine 54 Aminotransferase (AL T/SGPT) Alkaline Phosphatase 92 Total Protein 6.3 # Albumin 3.5 Globulin 2.80 Albumin/Globulin 1.25 Ratio Test 04/05/19 04:00 04/05/19 06:16 04/05/19 09:09 Bedside Glucose 303 H 133 White Blood Count 5.1 Red Blood Count 3.84 L Hemoglobin 11.7 L Hematocrit 33.2 L Mean Corpuscular 86.5 Volume Mean Corpuscular 30.5 Hemoglobin Mean Corpuscular 35.2 Hemoglobin Concent Red Cell 12.6 Distribution Width Platelet Count 150 Mean Platelet Volume 12.1 H Immature 0.400 Granulocytes % Neutrophils % 48.3 Lymphocytes % 40.2 Monocytes % 8.9 Eosinophils % 1.6 Basophils % 0.6 Nucleated Red Blood 0.0 Cells % Immature 0.020 Granulocytes # Neutrophils # 2.5 Lymphocytes # 2.0 Monocytes # 0.5 Eosinophils # 0.1 Basophils # 0.0 Nucleated Red Blood 0.0 Cells # Prothrombin Time 13.6 Prothrombin Time 1.1 Ratio INR International 1.03 Normalized Ratio Sodium Level 142 Potassium Level 3.5 Chloride Level 106 Carbon Dioxide Level 30 Anion Gap 6 Blood Urea Nitrogen 11 Creatinine 0.90 Est Glomerular > 60 Filtrat Rate mL/min Glucose Level 101 # Calcium Level 9.1 Total Bilirubin 1.1 Direct Bilirubin 0.00 Indirect Bilirubin 1.1 Aspartate Amino 41 Transf (AST/SGOT) Alanine 51 Aminotransferase (AL T/SGPT) Alkaline Phosphatase 78 Total Protein 6.4 Albumin 3.4 Globulin 3.00 Albumin/Globulin 1.13 Ratio Medications Medication Current Medications Ondansetron HCl (Zofran Inj) 4 mg Q6H PRN IV NAUSEA AND/OR VOMITING; Start 04/03/19 at 23:00 Albuterol (Proventil 0.083% (Neb)) 2.5 mg Q2H RESP THERAPY PRN NEB SHORTNESS OF BREATH; Start 04/03/19 at 23:00 Ipratropium [place] (Atrovent 0.02% (Neb)) 0.5 mg Q2H RESP THERAPY PRN NEB SHORTNESS OF BREATH; Start 04/03/19 at 23:00 Acetaminophen (Tylenol Liquid) 650 mg Q6H PRN PO PAIN LEVEL 1-3 OR FEVER; Start 04/03/19 at 23:00 Acetaminophen/ Hydrocodone Bitart ([place] (5/325)) 1 tab Q6H PRN PO PAIN LEVEL 4-6; Start 04/03/19 at 23:00 Docusate Sodium (Colace) 100 mg Q12H PRN PO CONSTIPATION; Start 04/03/19 at 23:00 Bisacodyl (Dulcolax) 5 mg DAILY PRN PO CONSTIPATION; Start 04/03/19 at 23:00 Heparin Sodium (Porcine) (Heparin (5000 Units/1ml)) 5,000 unit Q8 SC Last administered on 04/04/19at 21:08; Admin Dose 5,000 UNIT; Start 04/04/19 at 06:00 Piperacillin Sod/ Tazobactam Sod 100 ml @ 200 mls/hr Q6 IVPB Last administered on 04/05/19at 12:17; Admin Dose 200 MLS/HR; Start 04/04/19 at 00:30 Lorazepam (Ativan) 1 mg Q2H PRN IV CONTROL WITHDRAWAL SYMPTOMS; Start 04/04/19 at 05:00 Miscellaneous Information 1 ea NOTE XX ; Start 04/04/19 at 04:30 Glucose (Glutose) 15 gm Q15M PRN PO DECREASED GLUCOSE; Start 04/04/19 at 04:30 Glucose (Glutose) 22.5 gm Q15M PRN PO DECREASED GLUCOSE; Start 04/04/19 at 04:30 Dextrose (D50w Syringe) 25 ml Q15M PRN IV DECREASED GLUCOSE; Start 04/04/19 at 04:30 Dextrose (D50w Syringe) 50 ml Q15M PRN IV DECREASED GLUCOSE; Start 04/04/19 at 04:30 Glucagon (Glucagen) 1 mg Q15M PRN IM DECREASED GLUCOSE; Start 04/04/19 at 04:30 Glucose (Glutose) 15 gm Q15M PRN BUCCAL DECREASED GLUCOSE; Start 04/04/19 at 04:30 Insulin Glargine (Lantus) 12 units DAILY@2000 SC Last administered on 04/04/19at 21:12; Admin Dose 12 UNITS; Start 04/04/19 at 20:00 Insulin Aspart (Novolog Insulin Pen) 4 unit WITH MEALS SC Last administered on 7/25/19at 17:34; Admin Dose 4 UNIT; Start 04/04/19 at 11:50 Diagnostic Test (Pha) (Accu-Chek) 1 ea 02 XX Last administered on 04/05/19at 02:27; Admin Dose 1 EA; Start 04/05/19 at 02:00 Insulin Aspart (Novolog Insulin Pen) NOVOLOG *MODERATE* ALGORITHM WITH MEALS BEDTIME SC ; Start 04/05/19 at 08:00 SOLO PETERS MD Apr 05, 2019 13:28
[2019-04-05 14:00] VITALS: BP 103/57; PULSE 55; RESP 18
[2019-04-05] MEDS: CREON (12k-38k-60k) 1 CAP PO SCH (19:23)
[2019-04-05] MEDS ORDERED: INSULIN GLARGINE [LANTus] (100 UNITS/ML) SYG SC SCH ×2 (20:00→21:00)
[2019-04-05 20:15] VITALS: BP 104/54; PULSE 75; RESP 18
--- NOTE | 2019-04-05 20:27 | PN ---
Date/Time of Note Date/Time of Note DATE: 04/05/19 TIME: 20:24 Assessment/Plan VTE Prophylaxis Risk score (from Ns)>0 risk: 0 SCD applied (from Ns): Yes SCD contraindicated: low risk/ambulating Pharmacological prophylaxis: LMWH Lines/Catheters IV Catheter Type (from Nrs): Peripheral IV Assessment/Plan Hospital Course A/P 1. DM I w lactic acidosis; presently stable 2. Dm I 3. Nonadherence 4. Chr pancreatitis? 5. Psychosis 6. Meth 7. Hyperbilirubinemia; unable to do mrcp (metal). 8. Ftt; dc back to [facility]? 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 PE no pallor droop icterus reg ctab bs+ ntnd no r rg no edema non focal Result Diagram: 04/05/19 0909 04/05/19 1832 Results 24hrs Laboratory Tests Test 04/04/19 21:02 04/05/19 01:43 04/05/19 02:26 04/05/19 04:00 Bedside Glucose 299 H 431 *H 303 H Sodium Level 139 Potassium Level 4.4 Chloride Level 101 Carbon Dioxide Level 30 Anion Gap 8 Blood Urea Nitrogen 11 Creatinine 0.92 Est Glomerular > 60 Filtrat Rate mL/min Glucose Level 393 H Calcium Level 9.0 Total Bilirubin 1.3 Direct Bilirubin 0.00 Indirect Bilirubin 1.3 H Aspartate Amino 52 H Transf (AST/SGOT) Alanine 54 Aminotransferase (AL T/SGPT) Alkaline Phosphatase 92 Total Protein 6.3 # Albumin 3.5 Globulin 2.80 Albumin/Globulin 1.25 Ratio Test 04/05/19 06:16 04/05/19 09:09 04/05/19 16:17 04/05/19 16:41 Bedside Glucose 133 432 *H White Blood Count 5.1 Red Blood Count 3.84 L Hemoglobin 11.7 L Hematocrit 33.2 L Mean Corpuscular 86.5 Volume Mean Corpuscular 30.5 Hemoglobin Mean Corpuscular 35.2 Hemoglobin Concent Red Cell 12.6 Distribution Width Platelet Count 150 Mean Platelet Volume 12.1 H Immature 0.400 Granulocytes % Neutrophils % 48.3 Lymphocytes % 40.2 Monocytes % 8.9 Eosinophils % 1.6 Basophils % 0.6 Nucleated Red Blood 0.0 Cells % Immature 0.020 Granulocytes # Neutrophils # 2.5 Lymphocytes # 2.0 Monocytes # 0.5 Eosinophils # 0.1 Basophils # 0.0 Nucleated Red Blood 0.0 Cells # Prothrombin Time 13.6 Prothrombin Time 1.1 Ratio INR International 1.03 Normalized Ratio Sodium Level 142 140 Potassium Level 3.5 4.5 Chloride Level 106 104 Carbon Dioxide Level 30 30 Anion Gap 6 6 Blood Urea Nitrogen 11 11 Creatinine 0.90 0.92 Est Glomerular > 60 > 60 Filtrat Rate mL/min Glucose Level 101 # 299 #H Calcium Level 9.1 9.2 Total Bilirubin 1.1 1.1 Direct Bilirubin 0.00 0.00 Indirect Bilirubin 1.1 1.1 Aspartate Amino 41 41 Transf (AST/SGOT) Alanine 51 50 Aminotransferase (AL T/SGPT) Alkaline Phosphatase 78 86 Total Protein 6.4 6.7 Albumin 3.4 3.6 Globulin 3.00 3.10 Albumin/Globulin 1.13 1.16 Ratio Test 04/05/19 18:32 Sodium Level 138 Potassium Level 4.2 Chloride Level 101 Carbon Dioxide Level 28 Anion Gap 9 Blood Urea Nitrogen 11 Creatinine 1.08 Est Glomerular > 60 Filtrat Rate mL/min Glucose Level 382 H Calcium Level 8.8 Total Bilirubin 1.0 Direct Bilirubin 0.00 Indirect Bilirubin 1.0 Aspartate Amino 52 H Transf (AST/SGOT) Alanine 46 Aminotransferase (AL T/SGPT) Alkaline Phosphatase 73 Total Protein 6.1 Albumin 3.3 Globulin 2.80 Albumin/Globulin 1.17 Ratio Exam/Review of Systems Exam Vitals Vital Signs Date Temp Pulse Resp B/P (MAP) Pulse Ox O2 O2 Flow FiO2 Time Delivery Rate 04/05/19 98.0 75 18 104/54 98 Room Air 20:15 (71) Intake and Output 04/04/19 04/04/19 04/05/19 1515:00 23:00 07:00 IntakeIntake Total 400 ml 100 ml BalanceBalance 400 ml 100 ml Results Results 24hrs Laboratory Tests Test 04/04/19 21:02 04/05/19 01:43 04/05/19 02:26 04/05/19 04:00 Bedside Glucose 299 H 431 *H 303 H Sodium Level 139 Potassium Level 4.4 Chloride Level 101 Carbon Dioxide Level 30 Anion Gap 8 Blood Urea Nitrogen 11 Creatinine 0.92 Est Glomerular > 60 Filtrat Rate mL/min Glucose Level 393 H Calcium Level 9.0 Total Bilirubin 1.3 Direct Bilirubin 0.00 Indirect Bilirubin 1.3 H Aspartate Amino 52 H Transf (AST/SGOT) Alanine 54 Aminotransferase (AL T/SGPT) Alkaline Phosphatase 92 Total Protein 6.3 # Albumin 3.5 Globulin 2.80 Albumin/Globulin 1.25 Ratio Test 04/05/19 06:16 04/05/19 09:09 04/05/19 16:17 04/05/19 16:41 Bedside Glucose 133 432 *H White Blood Count 5.1 Red Blood Count 3.84 L Hemoglobin 11.7 L Hematocrit 33.2 L Mean Corpuscular 86.5 Volume Mean Corpuscular 30.5 Hemoglobin Mean Corpuscular 35.2 Hemoglobin Concent Red Cell 12.6 Distribution Width Platelet Count 150 Mean Platelet Volume 12.1 H Immature 0.400 Granulocytes % Neutrophils % 48.3 Lymphocytes % 40.2 Monocytes % 8.9 Eosinophils % 1.6 Basophils % 0.6 Nucleated Red Blood 0.0 Cells % Immature 0.020 Granulocytes # Neutrophils # 2.5 Lymphocytes # 2.0 Monocytes # 0.5 Eosinophils # 0.1 Basophils # 0.0 Nucleated Red Blood 0.0 Cells # Prothrombin Time 13.6 Prothrombin Time 1.1 Ratio INR International 1.03 Normalized Ratio Sodium Level 142 140 Potassium Level 3.5 4.5 Chloride Level 106 104 Carbon Dioxide Level 30 30 Anion Gap 6 6 Blood Urea Nitrogen 11 11 Creatinine 0.90 0.92 Est Glomerular > 60 > 60 Filtrat Rate mL/min Glucose Level 101 # 299 #H Calcium Level 9.1 9.2 Total Bilirubin 1.1 1.1 Direct Bilirubin 0.00 0.00 Indirect Bilirubin 1.1 1.1 Aspartate Amino 41 41 Transf (AST/SGOT) Alanine 51 50 Aminotransferase (AL T/SGPT) Alkaline Phosphatase 78 86 Total Protein 6.4 6.7 Albumin 3.4 3.6 Globulin 3.00 3.10 Albumin/Globulin 1.13 1.16 Ratio Test 04/05/19 18:32 Sodium Level 138 Potassium Level 4.2 Chloride Level 101 Carbon Dioxide Level 28 Anion Gap 9 Blood Urea Nitrogen 11 Creatinine 1.08 Est Glomerular > 60 Filtrat Rate mL/min Glucose Level 382 H Calcium Level 8.8 Total Bilirubin 1.0 Direct Bilirubin 0.00 Indirect Bilirubin 1.0 Aspartate Amino 52 H Transf (AST/SGOT) Alanine 46 Aminotransferase (AL T/SGPT) Alkaline Phosphatase 73 Total Protein 6.1 Albumin 3.3 Globulin 2.80 Albumin/Globulin 1.17 Ratio Medications Medication Current Medications Ondansetron HCl (Zofran Inj) 4 mg Q6H PRN IV NAUSEA AND/OR VOMITING; Start 04/03/19 at 23:00 Albuterol (Proventil 0.083% (Neb)) 2.5 mg Q2H RESP THERAPY PRN NEB SHORTNESS OF BREATH; Start 04/03/19 at 23:00 Ipratropium [place] (Atrovent 0.02% (Neb)) 0.5 mg Q2H RESP THERAPY PRN NEB SHORTNESS OF BREATH; Start 04/03/19 at 23:00 Acetaminophen (Tylenol Liquid) 650 mg Q6H PRN PO PAIN LEVEL 1-3 OR FEVER; Start 04/03/19 at 23:00 Acetaminophen/ Hydrocodone Bitart ([place] (5/325)) 1 tab Q6H PRN PO PAIN LEVEL 4-6; Start 04/03/19 at 23:00 Docusate Sodium (Colace) 100 mg Q12H PRN PO CONSTIPATION; Start 04/03/19 at 23:00 Bisacodyl (Dulcolax) 5 mg DAILY PRN PO CONSTIPATION; Start 04/03/19 at 23:00 Heparin Sodium (Porcine) (Heparin (5000 Units/1ml)) 5,000 unit Q8 SC Last administered on 04/04/19at 21:08; Admin Dose 5,000 UNIT; Start 04/04/19 at 06:00 Piperacillin Sod/ Tazobactam Sod 100 ml @ 200 mls/hr Q6 IVPB Last administered on 04/05/19at 17:41; Admin Dose 200 MLS/HR; Start 04/04/19 at 00:30 Lorazepam (Ativan) 1 mg Q2H PRN IV CONTROL WITHDRAWAL SYMPTOMS; Start 04/04/19 at 05:00 Miscellaneous Information 1 ea NOTE XX ; Start 04/04/19 at 04:30 Glucose (Glutose) 15 gm Q15M PRN PO DECREASED GLUCOSE; Start 04/04/19 at 04:30 Glucose (Glutose) 22.5 gm Q15M PRN PO DECREASED GLUCOSE; Start 04/04/19 at 04:30 Dextrose (D50w Syringe) 25 ml Q15M PRN IV DECREASED GLUCOSE; Start 04/04/19 at 04:30 Dextrose (D50w Syringe) 50 ml Q15M PRN IV DECREASED GLUCOSE; Start 04/04/19 at 04:30 Glucagon (Glucagen) 1 mg Q15M PRN IM DECREASED GLUCOSE; Start 04/04/19 at 04:30 Glucose (Glutose) 15 gm Q15M PRN BUCCAL DECREASED GLUCOSE; Start 04/04/19 at 04:30 Diagnostic Test (Pha) (Accu-Chek) 1 ea 02 XX Last administered on 04/05/19at 02:27; Admin Dose 1 EA; Start 04/05/19 at 02:00 Insulin Aspart (Novolog Insulin Pen) NOVOLOG *MODERATE* ALGORITHM WITH MEALS BEDTIME SC Last administered on 04/05/19at 16:49; Admin Dose 12 UNIT; Start 04/05/19 at 08:00 Insulin Aspart (Novolog Insulin Pen) 5 unit WITH MEALS SC Last administered on 04/05/19at 16:49; Admin Dose 5 UNIT; Start 04/05/19 at 18:00 Insulin Glargine (Lantus) 14 units DAILY@2000 SC ; Start 04/05/19 at 20:00 Amylase/Lipase/ Protease (CREON (12s-46k-60k)) 1 cap WITH MEALS PO ; Start 04/05/19 at 18:00 JUAN ALBERTO FLORES MD Apr 05, 2019 20:27
[2019-04-06] MEDS: ACCU-CHEK XX SCH (01:50)
[2019-04-06 02:15] VITALS: BP 108/54; PULSE 55; RESP 18
[2019-04-06 07:35] VITALS: BP 108/52; PULSE 65; RESP 17
[2019-04-06] MEDS: CREON (12k-38k-60k) 1 CAP PO SCH ×3 (08:26→17:12)
[2019-04-06] MEDS: INSULIN ASPART [NOVOLOG] 3 ML PEN SC SCH ×6 (08:28→17:16)
[2019-04-06] MEDS ORDERED: ENOXAPARIN 40 MG/0.4 ML SYG SC SCH (09:00)
[2019-04-06 14:00] VITALS: BP 111/51; PULSE 77; RESP 16
--- NOTE | 2019-04-06 15:52 | CONS ---
Assessment/Plan Assessment/Plan Problems: (1) Diabetes mellitus type 1 with hyperosmolarity Status: Chronic Comment: At this time his blood sugar control is doing well on his present regimen. I would continue the same. Qualifiers: Diabetes mellitus complication detail: without coma Qualified Codes: E10.69 - Type 1 diabetes mellitus with other specified complication (2) Abnormal liver function tests Status: Chronic Comment: He has had negative serologic tests for autoimmune phenomena, negative viral serologies, and does not appear to have fatty liver disease. (3) Chronic pancreatitis Status: Chronic Comment: As per primary team about the usage of pancreatic enzyme replacement Qualifiers: Pancreatitis type: unspecified pancreatitis type Qualified Codes: K86.1 - Other chronic pancreatitis Consultation Date/Type/Reason Admit Date/Time Apr 03, 2019 at 22:36 Initial Consult Date 04/04/19 Type of Consult Endocrinology Reason for Consultation Diabetes mellitus type I; schizoaffective disorder Requesting Provider: PORSHA SILVER Date/Time of Note DATE: 04/06/19 TIME: 15:47 24 HR Interval Summary Free Text/Dictation For the first time to the patient is awake alert and very conversant. Constitutional: no complaints Detailed Summary Respiratory: no complaints Cardiovascular: no complaints Endocrine: no complaints Exam/Review of Systems Exam Vitals Vital Signs Date Temp Pulse Resp B/P (MAP) Pulse Ox O2 O2 Flow FiO2 Time Delivery Rate 04/06/19 97.1 65 17 108/52 97 07:35 (70) 04/06/19 Room Air 02:15 Intake and Output 04/05/19 04/05/19 04/06/19 1515:00 23:00 07:00 IntakeIntake Total 200 ml 300 ml 200 ml BalanceBalance 200 ml 300 ml 200 ml Constitutional: alert, oriented Respiratory: clear to auscultation, normal air movement Cardiovascular: regular rate and rhythm, nl pulses Results Result Diagram: 04/06/19 0442 04/05/197 Results 24hrs Laboratory Tests Test 04/05/19 16:17 04/05/19 16:41 04/05/19 18:32 04/05/19 20:45 Sodium Level 140 138 Potassium Level 4.5 4.2 Chloride Level 104 101 Carbon Dioxide Level 30 28 Anion Gap 6 9 Blood Urea Nitrogen 11 11 Creatinine 0.92 1.08 Est Glomerular > 60 > 60 Filtrat Rate mL/min Glucose Level 299 #H 382 H Calcium Level 9.2 8.8 Total Bilirubin 1.1 1.0 Direct Bilirubin 0.00 0.00 Indirect Bilirubin 1.1 1.0 Aspartate Amino 41 52 H Transf (AST/SGOT) Alanine 50 46 Aminotransferase (AL T/SGPT) Alkaline Phosphatase 86 73 Total Protein 6.7 6.1 Albumin 3.6 3.3 Globulin 3.10 2.80 Albumin/Globulin 1.16 1.17 Ratio Bedside Glucose 432 *H 384 H Test 04/05/19 21:57 04/06/19 01:46 04/06/19 04:42 04/06/19 08:17 Sodium Level 134 L Potassium Level 4.4 Chloride Level 98 Carbon Dioxide Level 30 Anion Gap 6 Blood Urea Nitrogen 12 Creatinine 0.98 Est Glomerular > 60 Filtrat Rate mL/min Glucose Level 474 *H Calcium Level 8.6 Total Bilirubin 0.8 Direct Bilirubin 0.00 Indirect Bilirubin 0.8 Aspartate Amino 40 Transf (AST/SGOT) Alanine 51 Aminotransferase (AL T/SGPT) Alkaline Phosphatase 86 Total Protein 5.9 L Albumin 3.2 L Globulin 2.70 Albumin/Globulin 1.18 Ratio Bedside Glucose 367 H 220 White Blood Count 5.0 Red Blood Count 3.82 L Hemoglobin 11.5 L Hematocrit 33.6 L Mean Corpuscular 88.0 Volume Mean Corpuscular 30.1 Hemoglobin Mean Corpuscular 34.2 Hemoglobin Concent Red Cell 12.5 Distribution Width Platelet Count 135 L Mean Platelet Volume 12.7 H Immature 0.200 Granulocytes % Neutrophils % 43.4 Lymphocytes % 45.7 Monocytes % 8.5 Eosinophils % 1.6 Basophils % 0.6 Nucleated Red Blood 0.0 Cells % Immature 0.010 Granulocytes # Neutrophils # 2.2 Lymphocytes # 2.3 Monocytes # 0.4 Eosinophils # 0.1 Basophils # 0.0 Nucleated Red Blood 0.0 Cells # Test 04/06/19 12:18 04/06/19 14:17 04/06/19 14:39 04/06/19 14:58 Bedside Glucose 161 61 L 91 116 Medications Medication Current Medications Ondansetron HCl (Zofran Inj) 4 mg Q6H PRN IV NAUSEA AND/OR VOMITING; Start 03/12 12/28 at 23:00 Albuterol (Proventil 0.083% (Neb)) 2.5 mg Q2H RESP THERAPY PRN NEB SHORTNESS OF BREATH; Start 04/03/19 at 23:00 Ipratropium [place] (Atrovent 0.02% (Neb)) 0.5 mg Q2H RESP THERAPY PRN NEB SHORTNESS OF BREATH; Start 04/03/19 at 23:00 Acetaminophen (Tylenol Liquid) 650 mg Q6H PRN PO PAIN LEVEL 1-3 OR FEVER; Start 04/03/19 at 23:00 Acetaminophen/ Hydrocodone Bitart ([place] (5/325)) 1 tab Q6H PRN PO PAIN LEVEL 4-6; Start 04/03/19 at 23:00 Docusate Sodium (Colace) 100 mg Q12H PRN PO CONSTIPATION; Start 04/03/19 at 23:00 Bisacodyl (Dulcolax) 5 mg DAILY PRN PO CONSTIPATION; Start 04/03/19 at 23:00 Lorazepam (Ativan) 1 mg Q2H PRN IV CONTROL WITHDRAWAL SYMPTOMS; Start 04/04/19 at 05:00 Miscellaneous Information 1 ea NOTE XX ; Start 04/04/19 at 04:30 Glucose (Glutose) 15 gm Q15M PRN PO DECREASED GLUCOSE; Start 04/04/19 at 04:30 Glucose (Glutose) 22.5 gm Q15M PRN PO DECREASED GLUCOSE; Start 04/04/19 at 04:30 Dextrose (D50w Syringe) 25 ml Q15M PRN IV DECREASED GLUCOSE; Start 04/04/19 at 04:30 Dextrose (D50w Syringe) 50 ml Q15M PRN IV DECREASED GLUCOSE; Start 04/04/19 at 04:30 Glucagon (Glucagen) 1 mg Q15M PRN IM DECREASED GLUCOSE; Start 04/04/19 at 04:30 Glucose (Glutose) 15 gm Q15M PRN BUCCAL DECREASED GLUCOSE; Start 04/04/19 at 04:30 Diagnostic Test (Pha) (Accu-Chek) 1 ea 02 XX Last administered on 04/06/19at 01:50; Admin Dose 1 EA; Start 04/05/19 at 02:00 Insulin Aspart (Novolog Insulin Pen) NOVOLOG *MODERATE* ALGORITHM WITH MEALS BEDTIME SC Last administered on 04/06/19at 12:24; Admin Dose 2 UNIT; Start 04/05/19 at 08:00 Insulin Aspart (Novolog Insulin Pen) 5 unit WITH MEALS SC Last administered on 04/06/19 12:25; Admin Dose 5 UNIT; Start 04/05/19 at 18:00 Amylase/Lipase/ Protease (CREON (12k-38k-60k)) 1 cap WITH MEALS PO Last administered on 04/06/19 12:23; Admin Dose 1 CAP; Start 04/05/19 at 18:00 Enoxaparin Sodium (Lovenox) 40 mg DAILY SC Last administered on 04/06/19 08:29; Admin Dose 40 MG; Start 04/06/19 at 09:00 Insulin Glargine (Lantus) 18 units DAILY@2000 SC Last administered on 04/05/19 21:16; Admin Dose 18 UNITS; Start 04/05/19 at 21:00 SOLO PETERS MD Apr 06, 2019 15:52
--- NOTE | 2019-04-06 17:36 | PDOCDIS ---
Discharge Instructions CONDITION [id number] Patient Condition: [id number] Stable HOME CARE INSTRUCTIONS: [id number] Diet Instructions: [id number] Activity Restrictions: [id number] Slowly Increase Activity Do not Drive FOLLOW UP/APPOINTMENTS Follow-up Plan appt Primary & Endocrine 1wk JUAN ALBERTO FLORES MD Apr 06, 2019 17:36
--- NOTE | 2019-04-06 17:51 | DS ---
Date/Time of Note Date/Time of Note DATE: 04/06/19 TIME: 17:46 Discharge Summary Admission/Discharge Info Admit Date/Time Apr 03, 2019 at 22:36 Discharge Date/Time Patient Condition: Stable Consults Dr Zaman Procedures ABD Ultrasound IMPRESSION: 1. Common bile duct mildly dilated at 7.5 mm diameter. No intraductal stone or obstructing lesion is identified. Consider further evaluation with MRCP if clinically warranted. 2. Liver is unremarkable. venous bilat lower IMPRESSION: No evidence of deep venous thrombosis within bilateral lower extremities. CXR no acute process Hx of Present Illness admitted w n/n elevated sugars Hospital Course H COURSE treated w insulin in ICU. stablized, transferred to med surg. treatment adjusted. decompensation probably due to lack of insulin. a1c 11.4. start creon for possible chr pancreatitis. stable for discharge. CM assisting in referrals to Endocrine & GI. A/P 1. DM I w lactic acidosis; presently stable 2. Dm I. instructed for treating low blood sugar done. 3. Nonadherence 4. Chr pancreatitis? creon started by me. CT past 5. Psychosis 6. Meth 7. Hyperbilirubinemia; unable to do mrcp (metal). 8. Ftt; dc back to [facility]. Home Meds Active Scripts Dextrose (Glutose 15) 37.5 Gm Gel..gm., 15 GM BUCCAL Q15M PRN for DECREASED GLUCOSE for 7 Days, #10 1 Refill OTC Instant Glucose as needed for low blood sugar episodes. Prov:JUAN ALBERTO FLORES MD 04/06/19 [Insulin Glargine] 100 UNITS/ML SOLN No Conflict Check, 18 UNITS SC DAILY@2000 for 10 Days, #1 1 Refill 1 week supply and 1 refill. Prov:JUAN ALBERTO FLORES MD 04/06/19 Insulin Aspart* (Novolog Insulin Pen*) 100 Unit/Ml Soln, 5 UNIT SC WITH MEALS for 10 Days, #10 1 Refill 1 week supply and 1 refill. Prov:JUAN ALBERTO FLORES MD 04/06/19 Iudwcu-Jtsqovyg-Zsdpyno* (Creon DR* 12,000) 12,000 L-38,000-60,000 Unit Capsule., 1 CAP PO WITH MEALS for 30 Days, #30 2 Refills Prov:JUAN ALBERTO FLORES MD 04/06/19 Discontinued Reported Medications Insulin Lispro (Humalog) 100 U/Ml Vial 11/15/09 Insulin Human Isophan/Regular (Novolin 70/30) 100 Unit/Ml Susp 11/11/09 Follow-up Plan appt Primary & Endocrine 1wk Primary Care Provider Not On Staff Doctor Time spent on discharge: > 30 minutes Pending Labs Laboratory Tests Test 04/05/19 18:32 04/05/19 20:45 04/05/19 21:57 04/06/19 01:46 Sodium Level 138 134 mmol/L (135-144 mmol/L (135-14 ) 4) Potassium 4.2 4.4 Level mmol/L (3.5-5.1 mmol/L (3.5-5. ) 1) Chloride Level 101 98 mmol/L (97-110) mmol/L (97-110 ) Carbon Dioxide 28 30 Level mmol/L (21-31) mmol/L (21-31) Anion Gap 9 (5-13) 6 (5-13) Blood Urea 11 mg/dl (7-20) 12 Nitrogen mg/dl (7-20) Creatinine 1.08 0.98 mg/dl (0.61-1.2 mg/dl (0.61-1. 4) 24) Est Glomerular > 60 > 60 Filtrat mL/min (>60) mL/min (>60) Rate mL/min Glucose Level 382 474 mg/dl (70-220) mg/dl (70-220) Calcium Level 8.8 8.6 mg/dl (8.4-10.2 mg/dl (8.4-10. ) 2) Total 1.0 0.8 Bilirubin mg/dl (0.2-1.3) mg/dl (0.2-1.3 ) Direct 0.00 0.00 Bilirubin mg/dl (0.00-0.2 mg/dl (0.00-0. 0) 20) Indirect 1.0 0.8 Bilirubin mg/dl (0-1.1) mg/dl (0-1.1) Aspartate Amino 52 IU/L (15-46) 40 Transf (AST/SGO IU/L (15-46) T) Alanine 46 IU/L (13-69) 51 Aminotransferas IU/L (13-69) e (ALT/SGPT) Alkaline 73 86 Phosphatase IU/L (42-121) IU/L (42-121) Total Protein 6.1 5.9 g/dl (6.1-8.1) g/dl (6.1-8.1) Albumin 3.3 3.2 g/dl (3.3-4.9) g/dl (3.3-4.9) Globulin 2.80 2.70 g/dl (1.3-3.2) g/dl (1.3-3.2) Albumin/Globuli 1.17 1.18 n Ratio Bedside 384 367 Glucose mg/dL (70-220) mg/dL (70-220) Test 04/06/19 04:42 04/06/19 08:17 04/06/19 12:18 04/06/19 14:17 White Blood 5.0 Count 10^3/ul (4.8-10 .8) Red Blood 3.82 Count 10^6/ul (4.70-6 .10) Hemoglobin 11.5 g/dl (14.0-18.0 ) Hematocrit 33.6 % (42.0-52.0) Mean 88.0 Corpuscular fl (82.0-101.0) Volume Mean 30.1 Corpuscular pg (29.0-33.0) Hemoglobin Mean 34.2 Corpuscular g/dl (32.0-37.0 Hemoglobin Conc ) ent Red Cell 12.5 Distribution % (11.5-14.5) Width Platelet Count 135 10^3/UL (140-41 5) Mean Platelet 12.7 Volume fl (7.4-10.4) Immature 0.200 Granulocytes % % (0.001-0.429) Neutrophils % 43.4 % (39.0-77.0) Lymphocytes % 45.7 % (15.0-51.0) Monocytes % 8.5 % (0.0-11.0) Eosinophils % 1.6 % (0.0-7.0) Basophils % 0.6 % (0.0-2.0) Nucleated Red 0.0 Blood Cells % /100WBC (0.0-0. 0) Immature 0.010 Granulocytes # 10^3/ul (0.0-0. 031) Neutrophils # 2.2 10^3/ul (1.6-7. 5) Lymphocytes # 2.3 10^3/ul (0.8-2. 9) Monocytes # 0.4 10^3/ul (0.3-0. 9) Eosinophils # 0.1 10^3/ul (0.0-0. 5) Basophils # 0.0 10^3/ul (0.0-0. 1) Nucleated Red 0.0 Blood Cells # 10^3/ul (0.0-0. 0) Bedside 220 161 61 Glucose mg/dL (70-220) mg/dL (70-220) mg/dL (70-220) Test 04/06/19 14:39 04/06/19 14:58 04/06/19 17:06 Bedside 91 116 204 Glucose mg/dL (70-220) mg/dL (70-220) mg/dL (70-220) JUAN ALBERTO FLORES MD Apr 06, 2019 17:51
[2019-04-06] MEDS ORDERED: CREON (12k-38k-60k) 1 CAP PO SCH (18:00)
== END 2019-04-06 19:07 | disposition home or self-care (01) | DRG 638 ==
LOC: E/R 19:21 → TEL 22:36 → EDBEDREQSVC 04-04 04:10 → EDBEDREQTM 04-04 04:11 → 5EC 04-04 16:53
PROVIDERS: ADMIT Family Medicine; ATTEND Internal Medicine
DX: E10.65 Type 1 diabetes mellitus with hyperglycemia (principal); F20.0 Paranoid schizophrenia; N17.9 Acute kidney failure, unspecified; E87.1 Hypo-osmolality and hyponatremia; K86.1 Other chronic pancreatitis; E87.2 Acidosis; D69.6 Thrombocytopenia, unspecified; E80.6 Other disorders of bilirubin metabolism; F15.959 Other stimulant use, unspecified with stimulant-induced psychotic disorder, unspecified; J45.909 Unspecified asthma, uncomplicated; K83.8 Other specified diseases of biliary tract; Z91.19 Patient's noncompliance with other medical treatment and regimen; R62.7 Adult failure to thrive; Z68.24 Body mass index [BMI] 24.0-24.9, adult; Z79.4 Long term (current) use of insulin
CPT/HCPCS: 36415; 71045; 76705; 80053; 80061; 80307; 81003; 82306; 82390; 82550; 82803; 82947; 82962; 83036; 83605; 83735; 84100; 84443; 84484; 84681; 85025; 85610; 85730; 86038; 86255; 86704; 86706; 86709; 86803; 87086; 87340; 93005; 93970; 96365; 96366; 96367; 96368; 96375; J0692; J1644; J1650; J1815; J2060; J2543; J3370; J7030; J7042